=== PATIENT | male | born 1980 | race African-American/Black ===

== ENCOUNTER 2020-11-07 16:00 | Emergency (ER) | payer OTHER, SELFPAY ==
[2020-11-07] VITALS (23 sets, daily range): BP systolic 122–159; BP diastolic 87–112; PULSE 98–117; RESP 16–22; TEMP 36.1; O2SAT 97–98
--- NOTE | ~2020-11-07 | XR_ITS ---
EXAMINATION: XR chest 2V 11/07/2020 16:22 INDICATION: Midsternal chest pain and dizziness. Hypertension. PROCEDURE: 2 view chest COMPARISON: Comparison to multiple prior studies sequentially, with oldest reviewed study dated 10/2008. FINDINGS: The lungs are clear. The cardiomediastinal silhouette is within normal limits. There are no pleural effusions. There is no pneumothorax suspected. IMPRESSION: 1: NO ACUTE CARDIOPULMONARY DISEASE. Reviewed, dictated and finalized at location A. 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
--- NOTE | 2020-11-07 16:01 | ECG_ITS ---
Measurements Intervals [place] Rate: 115 P: 44 [place]: 131 QRS: -28 QRSD: 85 T: -4 QT: 315 QTc: 436 Interpretive Statements SINUS TACHYCARDIA DELAYED PRECORDIAL R/S TRANSITION BORDERLINE T WAVE ABNORMALITY- INFERIOR LEADS BASELINE WANDER- V1, V3-V6 ABNORMAL ECG Electronically Signed On 11-07-2020 16:33:41 [employer] by Paulo Gomez D.O.
[2020-11-07 16:18] LABS: Basophils Percent Auto 0.3 % (0.2-1.2); Eosinophils Absolute Auto 0.1 K/mm3 (0-0.3); Eosinophils Percent Auto 1.4 % (0-4.4); Hematocrit 46.7 % (42.0-52.0); Hemoglobin 15.8 g/dL (14.0-18.0); Immature Granulocyte Absolute 0.01 K/mm3 (0.00-0.031); Immature Granulocyte Percent A 0.1 % (0-0.5); Lymphocytes Percent Auto 38.4 % (18.3-44.2); Mean Corpuscular HGB Conc 33.8 g/dl (32-36); Mean Corpuscular Hemoglobin 29.4 pg (26-34); Mean Platelet Volume 9.7 fl (7.4-10.4); Monocytes Absolute Auto 0.7 K/mm3 (0.1-0.6); Monocytes Percent Auto 6.6 % (2.6-8.5); Neutrophils Absolute Auto 5.4 K/mm3 (1.3-6.7); Neutrophils Percent Auto 53.2 % (45.5-73.1); Platelet Count Result 311 k/mm3 (150-375); Red Blood Count 5.37 M/mm3 (4.6-6.20); Red Cell Distribution Width 13.2 % (11.5-14.5); White Blood Count 10.2 K/mm3 (4.5-10.0)
[2020-11-07 16:29] LABS: Anion Gap 9 mmol/L (8-16); Blood Urea Nitrogen 18 mg/dL (9-20); Calcium 9.2 mg/dL (8.4-10.2); Carbon Dioxide 25 mmol/L (22-30); Chloride 104 mmol/L (98-107); Estimated CRCL calculation 185 ml/min; Estimated Glomerular Filt Rate > 60; Glucose 139 mg/dL (75-110); INR 0.9; Prothrombin Time 12.7 Seconds (11.1-14.7); Sodium 138 mmol/L (137-145)
[2020-11-07 16:30] LABS: Partial Thromboplastin Time 28.1 SECONDS (22.3-36.8)
[2020-11-07 16:40] LABS: Troponin I < 0.012 ng/mL (0.000-0.034)
--- NOTE | 2020-11-07 16:43 | ED.CHESTPAIN ---
HPI - Chest Pain General Chief Complaint: Chest Pain Stated Complaint: chest pain Time Seen by Provider: 11/07/20 16:19 Source: patient Mode of arrival: ambulatory Limitations: no limitations History of Present Illness HPI narrative: Patient is a 39-year-old male complaining of chest pain, midsternal, sharp, nonradiating, 5 out of 10, currently the pain is 1 out of 10, Worse with deep breaths and movement started approximately 3 to 4 days ago. Patient denies any shortness of breath, dull pain, nausea, vomiting, diaphoresis, fever or chills. Related Data Home Medications Medication Instructions Recorded Confirmed lisinopril-hydrochlorothiazide BYMOUTH DAILY 11/07/20 Allergies Allergy/AdvReac Type Severity Reaction Status Date / Time No Known Allergies Allergy Unverified 11/07/20 16:10 Review of Systems Review of Systems: All systems reviewed & are unremarkable except as noted in HPI and below Constitutional: Constitutional: Denies body ache(s), Denies chills, Denies excessive sweating, Denies fatigue, Denies fever(s), Denies headache(s), Denies lethargy, Denies malaise, Denies weakness and Denies weight loss Eyes: Eyes: Denies blurry vision, Denies change in vision and Denies loss of vision ENT: Denies dizziness, Denies ear discharge, Denies headache(s), Denies lip swelling, Denies epistaxis, Denies nasal congestion, Denies neck pain, Denies throat swelling and Denies tongue swelling Cardiovascular: Cardiovascular: Denies diaphoresis, Denies rapid heart rate, Denies edema, Denies irregular heart rhythm, Denies lightheadedness, Denies palpitations, Denies dyspnea and Denies dyspnea on exertion Respiratory: Respiratory: Denies chest congestion, Denies cough, Denies hemoptysis, Denies dyspnea and Denies dyspnea on exertion Gastrointestinal: Gastrointestinal: Denies abdominal pain, Denies melena, Denies hematochezia, Denies diarrhea, Denies nausea, Denies vomiting and Denies hematemesis Musculoskeletal: Musculoskeletal: Denies abnormal gait, Denies deformity, Denies joint swelling, Denies limited range of motion, Denies neck pain and Denies numbness Neurologic: Denies Abnormal speech present, Denies abnormal gait, Denies confusion, Denies dizziness, Denies headache(s), Denies focal weakness, Denies loss of vision, Denies numbness, Denies Other visual disturbances, Denies Sensory deficit (Neuro) and Denies weakness Psychiatric: Psychiatric: Denies confusion, Denies depression, Denies auditory hallucinations, Denies homicidal ideation and Denies suicidal ideation Endocrine: Endocrine: Denies cold intolerance, Denies excessive sweating, Denies fatigue, Denies heat intolerance and Denies palpitations Hematologic/Lymphatic: Hematologic/Lymphatic: Denies easy bleeding and Denies easy bruising Allergic/Immunologic: Allergic/Immunologic: Denies lip swelling, Denies throat swelling and Denies tongue swelling Exam Const: General: cooperative, healthy appearing, comfortable, no acute distress, well developed, alert and awake; No confusion Orientation/consciousness: oriented to person, oriented to place, oriented to time, patient oriented x3 and No confusion Limitations: no limitations HENMT: Head: normal to inspection, normocephalic and atraumatic Ears: hearing grossly normal bilaterally, TM normal on the right and TM normal on the left General nose exam: Normal external nose present, Normal nares present and No nasal discharge present Face and sinus: normal facial exam Mouth: Yes Normal oral and palatal mucosa present, Yes lip normal, Yes tongue normal and Yes oropharynx normal Throat: posterior oropharynx normal, tonsils normal and uvula midline Eyes: General: appearance normal, both eyes and all related structures Pupils: Equal, round and reactive pupils present EOM: EOMs intact bilaterally Neck: Neck: normal visual inspection, full ROM, no lymphadenopathy and no meningeal signs Chest: Chest palpation & inspection: normal ins
[2020-11-07 17:10] LABS: D Dimer 0.25 ug/mL (<0.48)
[2020-11-07 20:02] LABS: Troponin I < 0.012 ng/mL (0.000-0.034)
== END 2020-11-07 20:50 | disposition home or self-care (01) ==
PROVIDERS: Emergency Provider Emergency Medicine; PCP Internal Medicine Infectious Disease
DX: R07.89 Other chest pain (principal); R00.0 Tachycardia, unspecified; R94.31 Abnormal electrocardiogram [ECG] [EKG]
CPT/HCPCS: 36415; 71046; 80048; 84484; 85025; 85380; 85610; 85730; 93005; 99284

== ENCOUNTER 2021-04-04 00:05 | Emergency (ER) | payer OTHER, SELFPAY ==
--- NOTE | ~2021-04-04 | XR_ITS ---
EXAMINATION: XR chest 1V portable INDICATION: Cough, COVID 19 positive TECHNIQUE: Portable AP chest at 1259 hours COMPARISON: 11/07/2020 FINDINGS: There are patchy opacities throughout all lung zones. There is no pleural effusion or pneum othorax. The cardiomediastinal silhouette is normal. The visualized osseous structures are unremarkab le. IMPRESSION: 1. Diffuse lung disease, consistent with pneumonia and/or pulmonary edema. Reviewed, dictated and finalized at location A.
[2021-04-04 00:03] VITALS: BP 157/94; PULSE 113; RESP 20; TEMP 36.2; O2SAT 94
--- NOTE | 2021-04-04 00:28 | ECG_ITS ---
Measurements Intervals [place] Rate: 109 P: 53 [place]: 131 QRS: -28 QRSD: 102 T: -5 QT: 335 QTc: 452 Interpretive Statements SINUS TACHYCARDIA POOR R WAVE PROGRESSION, ANTERIOR LEADS BORDERLINE T WAVE ABNORMALITY- ANTEROLAT/INF LEADS BASELINE ARTIFACT- I, II, III ABNORMAL ECG Electronically Signed On 04-04-2021 7:38:31 CDT by Paulo Gomez D.O.
[2021-04-04 01:18] VITALS: BP 139/80; PULSE 99; RESP 24; O2SAT 95
[2021-04-04] MEDS: SODIUM CHLORIDE 0.9% IV 1,000 ML 999 ML IV CONT (01:18)
[2021-04-04] MEDS: KETOROLAC 30 MG/ML VIAL (*BKC) IV PUSH (01:18)
[2021-04-04 01:25] LABS: Basophils Percent Auto 0.2 % (0.2-1.2); Hematocrit 43.8 % (42.0-52.0); Hemoglobin 14.4 g/dL (14.0-18.0); Immature Granulocyte Absolute 0.01 K/mm3 (0.00-0.031); Immature Granulocyte Percent A 0.2 % (0-0.5); Lymphocytes Absolute Auto 1.62 K/mm3 (0.9-3.2); Mean Corpuscular HGB Conc 32.9 g/dl (32-36); Mean Corpuscular Hemoglobin 28.5 pg (26-34); Mean Corpuscular Volume 86.7 fl (80-100); Mean Platelet Volume 10.4 fl (7.4-10.4); Monocytes Absolute Auto 0.3 K/mm3 (0.1-0.6); Monocytes Percent Auto 5.6 % (2.6-8.5); Neutrophils Absolute Auto 2.7 K/mm3 (1.3-6.7); Platelet Count Result 195 k/mm3 (150-375); Red Blood Count 5.05 M/mm3 (4.6-6.20); Red Cell Distribution Width 13.3 % (11.5-14.5); White Blood Count 4.6 K/mm3 (4.5-10.0)
[2021-04-04 01:36] LABS: Alanine Aminotransferase 67 U/L (4-50); Albumin Level 4.3 g/dL (3.5-5.1); Alkaline Phosphatase 75 U/L (38-126); Anion Gap 11 mmol/L (8-16); Aspartate Amino Transferase 51 U/L (17-59); Bilirubin,Total 0.6 mg/dL (0.2-1.3); Blood Urea Nitrogen 9 mg/dL (9-20); Calcium 8.4 mg/dL (8.4-10.2); Carbon Dioxide 25 mmol/L (22-30); Chloride 102 mmol/L (98-107); Estimated CRCL calculation 179 ml/min; Estimated Glomerular Filt Rate > 60; Glucose 132 mg/dL (75-110); Potassium 3.4 mmol/L (3.4-5.0); Sodium 138 mmol/L (137-145)
--- NOTE | 2021-04-04 02:37 | ED.FEVER ---
HPI - Fever General Chief Complaint: Fever Stated Complaint: covid +/ not feeling well Time Seen by Provider: 04/04/21 00:07 History of Present Illness HPI Narrative: Patient is a 40-year-old male who presents ER with persistent cough and body aches related to COVID-19. Diagnosed 6 days ago. Has been feeling ill for longer than that. Has had loss of taste and smell. Symptoms initially began with sinus congestion and cough. Patient reports cough is frequent is causing achiness to the back and chest. He has no shortness of breath with exertion. He has not been on any medications. He has not been vaccinated for Covid. Related Data Home Medications Medication Instructions Recorded Confirmed lisinopril-hydrochlorothiazide BYMOUTH DAILY 11/07/20 Allergies Allergy/AdvReac Type Severity Reaction Status Date / Time No Known Allergies Allergy Unverified 11/07/20 16:10 Review of Systems Review of Systems: All systems reviewed & are unremarkable except as noted in HPI and below Constitutional: Constitutional: Reports chills, Reports fatigue and Reports fever(s) ENT: Reports nasal congestion and Denies sore throat Respiratory: Respiratory: Reports cough, Denies dyspnea and Denies wheezing Gastrointestinal: Gastrointestinal: Denies abdominal pain, Denies nausea and Denies vomiting PMFSH Past Medical History Medical History (Updated 04/04/21 @ 02:41 by James Gonzalez MD) Hypertension Surgical History Surgical History (Updated 04/04/21 @ 02:38 by James Gonzalez MD) No pertinent past surgical history Social History Social History (Updated 04/04/21 @ 02:38 by James Gonzalez MD) Smoking status: Never smoker Exam Narrative: Exam Narrative: GENERAL: Well-appearing, morbidly obese, and in no acute distress. HEAD: Normocephalic, atraumatic. CHEST: Clear to auscultation. No respiratory distress. HEART: Regular rate and rhythm. Normal peripheral pulses. ABDOMEN: Soft, nontender, nondistended. EXTREMITIES: Normal range of motion. No edema. SKIN: Warm, dry, no rash. NEURO: Alert and oriented x3. PSYCH: Normal mood and affect. 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 Discharge home. No hypoxia. Hopefully patient is beginning to turn the corner in his symptoms. Vital Signs Vital signs: Vital Signs Temperature 97.1 F L 04/04/21 00:03 Pulse Rate 113 H 04/04/21 00:03 Respiratory Rate 20 04/04/21 00:03 Blood Pressure 157/94 H 04/04/21 00:03 Pulse Oximetry 94 04/04/21 00:03 Temperature 97.1 F L 04/04/21 00:03 Pulse Rate 99 04/04/21 01:18 Respiratory Rate 24 H 04/04/21 01:18 Blood Pressure 139/80 04/04/21 01:18 Pulse Oximetry 95 04/04/21 01:18 MDM - Fever Lab Data Result diagrams: 04/04/21 01:17 04/04/21 01:17 Labs: Lab Results 04/04/21 04/04/21 Range/Units 01:17 01:17 WBC 4.6 (4.5-10.0) K/mm3 RBC 5.05 (4.6-6.20) M/mm3 Hgb 14.4 (14.0-18.0) g/dL Hct 43.8 (42.0-52.0) % MCV 86.7 (80-100) fl MCH 28.5 (26-34) pg MCHC 32.9 (32-36) g/dl RDW 13.3 (11.5-14.5) % Plt Count 195 (150-375) k/mm3 MPV 10.4 (7.4-10.4) fl Immature Gran % (Auto) 0.2 (0-0.5) % Neut % (Auto) 59.0 (45.5-73.1) % Lymph % (Auto) 35.0 (18.3-44.2) % Grainger % (Auto) 5.6 (2.6-8.5) % Eos % (Auto) 0.0 (0-4.4) % Baso % (Auto) 0.2 (0.2-1.2) % Lymph # (Auto) 1.62 (0.9-3.2) K/mm3 Grainger # (Auto) 0.3 (0.1-0.6) K/mm3 Eos # (Auto) 0.0 (0-0.3) K/mm3 Baso # (Auto) 0.0 (0.0-0.1) K/mm3 Abs Immat Gran (auto) 0.01 (0.00-0.031) K/mm3 Absolute Neuts (auto) 2.7 (1.3-6.7) K/mm3 Absolute Nucleated RBC 0.0 (0.0-0.012) K/mm3 Nucleated RBC % 0.0 (0.0-0.2) % Sodium 138 (137-145) mmol/L Potassium 3.4 (3.4-5.0) mmol/L Chloride 102 (98-107) mmol/L Carbon Dioxide 25 (22-30) mmol/L Anion Gap 11 (8-16) mmol/L BUN 9 D (9-20) mg/dL Creatinine 0.80 (
[2021-04-04 02:46] VITALS: BP 115/70; PULSE 90; RESP 20; O2SAT 94
--- NOTE | 2021-04-08 04:50 | PC.NURSE ---
LATE ENTRY This note is being entered to document information to the patient's record. The following information was omitted on [], by [[email or web address] @ [phone]].
== END 2021-04-04 03:06 | disposition home or self-care (01) ==
PROVIDERS: Emergency Provider Emergency Medicine; PCP Internal Medicine Infectious Disease
DX: U07.1 COVID-19 (principal); J12.82 Pneumonia due to coronavirus disease 2019; I10 Essential (primary) hypertension
CPT/HCPCS: 36415; 71045; 80053; 85025; 93005; 96361; 96374; 99284; J1885; J7030

== ENCOUNTER 2021-05-28 00:31 | Emergency (ER) | payer OTHER, SELFPAY ==
[2021-05-28 00:36] VITALS: BP 173/105; PULSE 98; RESP 16; TEMP 36.8; O2SAT 98
--- NOTE | 2021-05-28 01:05 | ECG_ITS ---
Measurements Intervals [place] Rate: 86 P: 41 [place]: 148 QRS: -24 QRSD: 102 T: -4 QT: 371 QTc: 445 Interpretive Statements SINUS RHYTHM DELAYED PRECORDIAL R/S TRANSITION BORDERLINE T WAVE ABNORMALITY- ANT/INF LEADS BASELINE ARTIFACT- I, II, III, AVR, AVL, AVF, V2-V6 BORDERLINE ECG Electronically Signed On 05-28-2021 6:27:26 CDT by Paulo Gomez D.O.
--- NOTE | 2021-05-28 01:07 | ED.DIZZY ---
HPI - Dizziness General Chief Complaint: Dizziness Stated Complaint: headaches, blurred vision, not sleeping Time Seen by Provider: 05/28/21 00:58 History of Present Illness HPI Narrative: Patient presents with not feeling well. Patient ports she had Covid back in March and ever since then he has not felt back to 100%. Reports is getting progressively worse prickly over the last week and over the last 24 hours. Reports diffuse body aches subjective fevers and chills nausea and decreased appetite. Reports dark-yellow urine reports cough as well as headaches. Denies any focal areas of pain is reports diffuse body aches. Related Data Home Medications Medication Instructions Recorded Confirmed lisinopril-hydrochlorothiazide BYMOUTH DAILY 11/07/20 Allergies Allergy/AdvReac Type Severity Reaction Status Date / Time No Known Allergies Allergy Unverified 11/07/20 16:10 Review of Systems Review of Systems: CONSTITUTIONAL: Reports fevers and chills EYES: Denies visual changes, redness, or discharge. ENT: Denies rhinorrhea, congestion, sore throat, or otalgia. CARDIOVASCULAR: Denies chest pain, palpitations, or edema. RESPIRATORY: Denies dyspnea. GASTROINTESTINAL: Denies focal abdominal pain, vomiting, or diarrhea. GENITOURINARY: Denies dysuria or hematuria. SKIN: Denies rash or itching. MUSCULOSKELETAL: Denies back pain, joint pain.. NEUROLOGIC: Denies numbness, dizziness, or weakness. PSYCHIATRIC: Denies anxiety or depression. All systems reviewed & are unremarkable except as noted in HPI and below PMFSH Past Medical History Medical History Hypertension Surgical History Surgical History No pertinent past surgical history Social History Social History Smoking status: Never smoker Exam Narrative: GENERAL: Well-appearing, well-nourished, and in no acute distress. HEAD: Normocephalic, atraumatic. EYES: PERRLA and EOMI. ENT: Nares clear, no rhinorrhea or epistaxis. Mucous membranes moist. NECK: Supple. No masses. No JVD CHEST: Clear to auscultation. No respiratory distress. No wheezes rales or rhonchi HEART: Regular rate and rhythm. No murmur heard. Normal peripheral pulses. ABDOMEN: Soft, nontender, nondistended, normal active bowel sounds. EXTREMITIES: Normal range of motion. No edema. SKIN: Warm, dry, no rash. NEURO: No focal deficits. Alert and oriented x3. PSYCH: Normal mood and affect. Course Reevaluation(s) Reevaluation #1: Patient reports symptoms feel improved results and plan reviewed with patient. Patient comfortable with the outpatient plan. Date: 05/28/21 Time: : Vital Signs Vital signs: Vital Signs Temperature 36.8 C 05/28/21 00:36 Pulse Rate 98 05/28/21 00:36 Respiratory Rate 16 05/28/21 00:36 Blood Pressure 173/105 H 05/28/21 00:36 Pulse Oximetry 98 05/28/21 00:36 Temperature 36.6 C 05/28/21 01:16 Pulse Rate 86 05/28/21 02:37 Respiratory Rate 16 05/28/21 02:37 Blood Pressure 166/98 H 05/28/21 02:37 Pulse Oximetry 96 05/28/21 02:37 MDM - Dizziness MDM Narrative Medical decision making narrative: H&P as above, vs with hypertension, pt looks clinically well, exam reassuring, labs reassuring, additional labs/img considered, symptomatic relief available as needed, on reevaluation pt continues to looks clinically well. Suspect viral process, dns severe sepsis, severe dehydration, meningitis. Given improvement and negative work-up plan to tx/monitor as op w/ pcm f/u findings/plan discussed with pt, pt agree/comfortable with plan, return precautions given Lab Data Result diagrams: 05/28/21 01:34 05/28/21 01:34 Labs: Lab Results 05/28/21 05/28/21 05/28/21 Range/Units 01:34 01:34 01:34 WBC 9.8 (4.5-10.0) K/mm3 RBC 4.87 (4.6-6.20) M/mm3 Hgb
[2021-05-28 01:16] VITALS: BP 152/93; PULSE 89; RESP 20; TEMP 36.6; O2SAT 97
[2021-05-28 01:21] VITALS: BP 152/93; PULSE 90; RESP 16; O2SAT 96
--- NOTE | 2021-05-28 01:24 | PC.NURSE ---
Pt unable to void at this time, refuses straight catheterization at this time. Urinal at bedside.
[2021-05-28 01:31] VITALS: BP 133/90; PULSE 86; RESP 23; O2SAT 97
[2021-05-28] MEDS: SODIUM CHLORIDE 0.9% IV 1,000 ML 999 ML IV CONT (01:38)
[2021-05-28] MEDS: ONDANSETRON INJ 4 MG/2 ML VIAL IV PUSH (01:40)
[2021-05-28] MEDS: KETOROLAC 30 MG/ML VIAL (*BKC) 15 MG IV PUSH (01:40)
[2021-05-28 01:53] LABS: Basophils Percent Auto 0.4 % (0.2-1.2); Eosinophils Absolute Auto 0.1 K/mm3 (0-0.3); Eosinophils Percent Auto 1.1 % (0-4.4); Hematocrit 42.7 % (42.0-52.0); Hemoglobin 14.2 g/dL (14.0-18.0); Immature Granulocyte Absolute 0.02 K/mm3 (0.00-0.031); Immature Granulocyte Percent A 0.2 % (0-0.5); Lymphocytes Absolute Auto 4.15 K/mm3 (0.9-3.2); Lymphocytes Percent Auto 42.4 % (18.3-44.2); Mean Corpuscular HGB Conc 33.3 g/dl (32-36); Mean Corpuscular Hemoglobin 29.2 pg (26-34); Mean Corpuscular Volume 87.7 fl (80-100); Mean Platelet Volume 9.5 fl (7.4-10.4); Monocytes Absolute Auto 0.8 K/mm3 (0.1-0.6); Monocytes Percent Auto 8.6 % (2.6-8.5); Neutrophils Absolute Auto 4.6 K/mm3 (1.3-6.7); Neutrophils Percent Auto 47.3 % (45.5-73.1); Platelet Count Result 312 k/mm3 (150-375); Red Blood Count 4.87 M/mm3 (4.6-6.20); Red Cell Distribution Width 13.2 % (11.5-14.5); White Blood Count 9.8 K/mm3 (4.5-10.0)
[2021-05-28 02:00] LABS: Add Urine Microscopic? YES; Appearance Urine Clear (Clear); Bilirubin Urine Negative (Negative); Blood Urine Negative (Negative); Color Urine Yellow (Yellow); Glucose Urine UA Negative (Negative); Ketones Urine Negative (Negative); Leukocyte Esterase Ur Negative LEU/UL (Negative); Mucus Urine Heavy /lpf; Nitrate Urine Negative (Negative); Protein Urine Negative (Negative); RBC Urine 0-2 /hpf (0-2); WBC Urine 0-3 /hpf
[2021-05-28 02:00] LABS: Lactic Acid Reflex 1.1 mmol/L (0.7-2.1)
[2021-05-28 02:01] VITALS: BP 158/99; PULSE 87; RESP 16; O2SAT 96
[2021-05-28 02:01] LABS: Alanine Aminotransferase 46 U/L (4-50); Albumin Level 4.4 g/dL (3.5-5.1); Alkaline Phosphatase 72 U/L (38-126); Anion Gap 9 mmol/L (8-16); Aspartate Amino Transferase 31 U/L (17-59); Bilirubin,Total 0.8 mg/dL (0.2-1.3); Blood Urea Nitrogen 10 mg/dL (9-20); Calcium 8.8 mg/dL (8.4-10.2); Carbon Dioxide 26 mmol/L (22-30); Chloride 102 mmol/L (98-107); Estimated CRCL calculation 204 ml/min; Estimated Glomerular Filt Rate > 60; Glucose 136 mg/dL (65-110); Lipase 59 U/L (23-300); Potassium 3.4 mmol/L (3.4-5.0); Sodium 137 mmol/L (137-145)
[2021-05-28 02:37] VITALS: BP 166/98; PULSE 86; RESP 16; O2SAT 96
== END 2021-05-28 02:40 | disposition home or self-care (01) ==
PROVIDERS: Emergency Provider Emergency Medicine; PCP Family Medicine Sports Medicine
DX: B34.9 Viral infection, unspecified (principal); R42 Dizziness and giddiness; Z86.16 Personal history of COVID-19; I10 Essential (primary) hypertension; R94.31 Abnormal electrocardiogram [ECG] [EKG]
CPT/HCPCS: 36415; 80053; 81001; 83605; 83690; 85025; 93005; 96361; 96374; 96375; 99284; J1885; J2405; J7030

== ENCOUNTER 2023-05-09 23:53 | Emergency (ER) | payer OTHER, SELFPAY ==
[2023-05-09 23:54] VITALS: BP 168/105; PULSE 87; RESP 16; TEMP 36.4; O2SAT 97
[2023-05-10 00:31] VITALS: BP 146/73; PULSE 86; RESP 21; TEMP 36.4; O2SAT 98
[2023-05-10 00:32] VITALS: O2SAT 99
[2023-05-10] MEDS: MECLIZINE HCL 25 MG TABLET PO (01:10)
[2023-05-10 01:11] LABS: Strep Group A RT-PCR NOT DETECTED (Negative)
[2023-05-10 01:21] LABS: Influenza A QL RT-PCR Negative (Negative); Influenza B QL RT-PCR Negative (Negative); RSV RNA, RT-PCR Negative (Negative); SARS-CoV-2 RNA PCR Negative (Negative)
--- NOTE | 2023-05-10 01:47 | ED.URI ---
HPI - URI/Sore Throat General Chief Complaint: Upper Respiratory Infection Stated Complaint: dizzy spells Time Seen by Provider: 05/10/23 00:34 History of Present Illness HPI Narrative: Patient states that over the last week, he has been having increased sinus pressure, and feeling like his ears are very full, with a sore throat. He states that associated with this he has been having more motion sickness, especially when he is driving, which resolves when he is not in a moving vehicle. No focal numbness or weakness anywhere or difficulty with speech. No personal or family history of stroke. Related Data Home Medications Medication Instructions Recorded Confirmed lisinopril-hydrochlorothiazide BYMOUTH DAILY 11/07/20 Allergies Allergy/AdvReac Type Severity Reaction Status Date / Time No Known Allergies Allergy Unverified 11/07/20 16:10 Review of Systems Review of Systems: CONST: No fever. HEENT: Sore throat, ear fullness C/V: No chest pain RESP: No cough GI: No abdominal : No dysuria. M/S: No joint pain. SKIN: No rash. NEURO: Vertigo PSYCH: [No depression] [facility] Past Medical History Medical History Hypertension Surgical History Surgical History No pertinent past surgical history Social History Social History Smoking status: Never smoker Exam Narrative: EXAMINATION OF ORGAN SYSTEMS/BODY AREAS: Constitutional: Vital signs per nursing GENERAL:[No acute distress, non-toxic appearing.] HEAD: Normal with no signs of head trauma. EYES: EOMI, conjunctiva normal ENT: Bilateral TMs intact, normal voice, no tonsillar exudates or swelling LUNGS: Nonlabored breathing. HEART: [Regular rate and rhythm] ABD: [Soft], [nontender to palpation] EXT: Normal range of motion SKIN: [No rashes or lesions.] NEURO: [Alert and oriented x 3. CN 2-12 intact; normal gait, no motor or sensory deficits] PSYCH: Normal affect Course Vital Signs Vital signs: Vital Signs Temperature 97.6 F 05/09/23 23:54 Pulse Rate 87 05/09/23 23:54 Respiratory Rate 16 08/08/23 23:54 Blood Pressure 168/105 H 05/09/23 23:54 Pulse Oximetry 97 05/09/23 23:54 Oxygen Delivery Room Air 05/09/23 23:54 Temperature 97.5 F L 05/10/23 01:58 Pulse Rate 87 05/10/23 01:58 Respiratory Rate 25 H 05/10/23 01:58 Blood Pressure 101/74 05/10/23 01:58 Pulse Oximetry 98 05/10/23 01:58 Oxygen Delivery Room Air 05/10/23 00:32 MDM - URI/Sore Throat MDM Narrative Medical decision making narrative: 42-year-old male presenting with intermittent vertigo worse when he is in a moving vehicle as well as increased ear pressure over the last week, none currently, vital stable, well-appearing here, TMs intact and no airway compromise, normal neurologic exam including normal gait. Very low concern for acute CVA given the intermittency of his symptoms and no risk factors, especially with it being worse when he is driving, swabs obtained for strep and COVID which were negative. Patient continues to be well-appearing, I will start him on meclizine for his vertigo and have him follow-up with ENT and with neurology. He is also started on Flonase for sinusitis. Stable for discharge at this time. Lab Data Labs: Lab Results 05/10/23 Range/Units 00:41 Influenza A (RT-PCR) Negative (Negative) Influenza B (RT-PCR) Negative (Negative) RSV (RT-PCR) Negative (Negative) SARS-CoV-2 RNA (RT-PCR) Negative (Negative) Group A Strep (PCR) Not detected (Negative) Discharge Plan Discharge Clinical Impression: Vertigo, Sinusitis Patient Disposition: Home, Self-Care Condition: Stable Instructions: Antibiotic Form, Sinusitis (ED), Vertigo (ED) Additional Instructions: Please follow-up with the ENT and neurologist, barotlo
[2023-05-10 01:58] VITALS: BP 101/74; PULSE 87; RESP 25; TEMP 36.4; O2SAT 98
== END 2023-05-10 01:59 | disposition home or self-care (01) ==
PROVIDERS: Emergency Provider Emergency Medicine; PCP Family Medicine Sports Medicine
DX: J32.9 Chronic sinusitis, unspecified (principal); R42 Dizziness and giddiness; Z20.822 Contact with and (suspected) exposure to COVID-19; I10 Essential (primary) hypertension
CPT/HCPCS: 87637; 87651; 99283; A9270

== ENCOUNTER 2024-10-22 22:46 | Emergency (ER) | payer BC, SELFPAY ==
[2024-10-22 22:50] VITALS: BP 143/85; PULSE 98; RESP 18; TEMP 36.4; O2SAT 100
--- NOTE | 2024-10-22 23:21 | ED.EAR ---
HPI - Ear Problem General Chief complaint: Ear Stated complaint: ear pain Time Seen by Provider: 10/22/24 23:07 History of Present Illness HPI Narrative: Patient is a 43-year-old male who presents the emergency department this evening complaining of left ear pain. Patient states the pain has been ongoing for the past 10 days ago. Denies any ear drainage. Denies any recent swimming or any recent URI illness. Patient also denies any recent fevers or chills. No additional symptoms or concerns at this time. Related Data Home Medications ?Medication ?Instructions ?Recorded ?Confirmed ?Last Taken ?Type lisinopril-hydrochlorothiazide BYMOUTH DAILY 11/07/20 Unknown History Allergies Allergy/AdvReac Type Severity Reaction Status Date / Time No Known Allergies Allergy Unverified 11/07/20 16:10 Review of Systems Review of Systems: All systems are reviewed and are negative unless stated otherwise in the HPI. COUNT INCLUDES THE [facility] Past Medical History Medical History Hypertension Surgical History Surgical History No pertinent past surgical history Social History Social History Smoking status: Never smoker Exam Narrative: General: Alert, awake, afebrile, in no acute distress. HEENT: PERRL, no rhinorrhea, no post nasal drip, oropharynx clear, mild erythema to the left tympanic membrane with diminished light reflex. Neck: Trachea midline, no JVD, no lymphadenopathy. Cardiovascular: Regular rate and rhythm, no murmurs, rubs or gallops, no peripheral edema. Respiratory: Clear to auscultation bilaterally, no tachypnea, no wheezing, no rhonchi, no rubs, no respiratory distress. Abdomen: Soft, nontender, nondistended, no rebound, no guarding, no peritoneal signs. Musculoskeletal: No joint swelling or deformity, normal muscle tone. Skin: No rashes or petechia, no signs of infection. Psychiatric: Alert and oriented, normal behavior and judgment for situation. Neurological: Alert and oriented to person, place, and time. Follows all commands. No focal deficits, speech is clear and fluent. Course Vital Signs Vital signs: Vital Signs Temperature 97.6 F 10/22/24 22:50 Pulse Rate 98 10/22/24 22:50 Respiratory Rate 18 10/22/24 22:50 Blood Pressure 143/85 H 10/22/24 22:50 Pulse Oximetry 100 10/22/24 22:50 Oxygen Delivery Room Air 10/22/24 22:50 Temperature 97.6 F 10/22/24 22:50 Pulse Rate 98 10/22/24 22:50 Respiratory Rate 18 10/22/24 22:50 Blood Pressure 143/85 H 10/22/24 22:50 Pulse Oximetry 100 10/22/24 22:50 Oxygen Delivery Room Air 10/22/24 22:50 Medical Decision Making MDM Narrative Medical decision making narrative: The patient was evaluated by myself in the emergency department. History is obtained from patient who is an independent historian and physical exam was performed. External medical records were reviewed at this time. Patient was administered oral ibuprofen 400 mg and 1st dose of Augmentin in the emergency department. Differential diagnosis considerations include otitis media versus otitis externa, acute viral syndrome, pharyngitis/postnasal drip. Comorbidities impacting this visit include none. I have evaluated and discussed social determinants of health with the patient that could potentially impact subsequent diagnosis and treatment plans. On repeat assessment of the patient, reevaluation revealed that the patient is doing well and is in no acute distress. Patient symptoms have improved since he arrived to our emergency department. Repeat vital signs were all reviewed and noted to be stable. Differential diagnosis and treatment plan were discussed with the patient at bedside. Patient agrees with discussion and after shared medical decision making agrees with discharge. All questions were answered to the patient's satisfaction. Patient will follow up with his PCP in 1 week. A script for Augmentin was sent to patient's pharmacy to take as prescribed for his ear infection. Patient was provided with strict return precautions and instructed to return to the emergency department if any new or worsening symptoms develop. The patient was discharged in stable condition. Vital Signs Vital Signs: Vital Signs Temperature 97.6 F 10/22/24 22:50 Pulse Rate 98 10/22/24 22:50 Respiratory Rate 18 10/22/24 22:50 Blood Pressure 143/85 H 10/22/24 22:50 Pulse Oximetry 100 10/22/24 22:50 Oxygen Delivery Room Air 10/22/24 22:50 Temperature 97.6 F 10/22/24 22:50 Pulse Rate 98 10/22/24 22:50 Respiratory Rate 18 10/22/24 22:50 Blood Pressure 143/85 H 10/22/24 22:50 Pulse Oximetry 100 10/22/24 22:50 Oxygen Delivery Room Air 10/22/24 22:50 Discharge Plan Discharge Clinical Impression: Otitis media Patient Disposition: Home, Self-Care Condition: Improved Instructions: Antibiotic Form, Earache (ED) Additional Instructions: Please follow-up with your family doctor within the next 3-5 days. Return to the emergency department if any new or worsening symptoms develop. Take the prescribed antibiotic as instructed for your infection. You may use ibuprofen and Tylenol as needed for pain. Patient Language: [place] Prescriptions: New amoxicillin-pot clavulanate 875-125 mg tablet 1 tablet PO Q12H 7 Days Qty: 14 0RF No Action lisinopril-hydrochlorothiazide BYMOUTH DAILY fluticasone propionate [Allergy Relief (fluticasone)] 50 mcg/actuation spray,suspension 1 spray intranasal DAILY Qty: 16 0RF Rx Instructions: administer into each nostril meclizine 25 mg tablet 25 mg PO BID PRN (Reason: motion sickness) Qty: 20 0RF ondansetron 4 mg tablet,disintegrating 4 mg PO Q8H PRN (Reason: nausea and vomiting) Qty: 10 0RF Follow-up/Referrals: Young,Osei Saldaña MD [Primary Care Provider] - 1 Week Time of Disposition: 23:23
[2024-10-22] MEDS: AMOXICILLIN/CLAVULANATE K 875-125 MG TAB 1 TABLET PO (23:36)
[2024-10-22] MEDS: IBUPROFEN 400 MG TABLET PO (23:36)
--- OUTSIDE RECORDS SUMMARY | 2024-10-24 20:46 | XMS_ITS | Clinical Summary ---
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 Name Role Phone Unavailable Primary Care Provider Unavailabl e Social History Tobacco Use Types Packs/Day Years Used Date Smoking Tobacco: Never Assessed Sex and Gender Information Value Date Recorded Sex Assigned at Not on file Legal Sex Male 2:43 PM CDT Gender Identity Not on file Sexual Orientation Not on file Plan of Treatment Health Maintenance Due Date Last Done Comments Hepatitis C Virus (HCV) Screening 1981 Hepatitis B Immunization (1 of 3 - 19+ 3-dose series) 2000 Influenza Immunization (#1) 2024 SARS-COV-2 Immunization (2023- season) 2024 Respiratory Syncytial Virus (RSV) Immunization (Adult) (1 - 1-dose 75+ series) 2056 DTaP/Tdap/Td Immunization Discontinued 11/05/2018 TdaP Immunization Completed 11/05/2018 Meningococcal Immunization (ACWY) Aged Out No longer eligible based on patient's age to complete this topic Pneumococcal Immunization Combined Aged Out No longer eligible b ased on patient's age to complete this topic Rotavirus Immunization Aged Out No lo nger eligible based on patient's age to complete this topic
--- OUTSIDE RECORDS SUMMARY | 2024-10-24 20:46 | XMS_ITS | CONTINUITY OF CARE DOCUMENT ---
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 Julio C Ruvalcaba MD Chest pain active Toby Delgado MD Diabetes mellitus active Toby Delgado MD Obesity active Julio C Ruvalcaba MD Physical exam completed - Toby giles MD Dizziness active Julio C Ruvalcaba MD ENCOUNTERS Date Type Provider Location Encounter Diag nosis 2 - 2 In-person encounter Office Visit Toby Delgado MD [facility] Physical examChest painDiabetes mellitus 9 - 3 In-person encounter Office Visit Julio C Ruvalcaba MD [facility] DizzinessPalpitationsObesitySinus tachycardiaHypertension VITAL SIGNS Date Observation Value Provider Body Mass Index (Ratio) 50.58 kg/m2 Teresa Delgado MD blood pressure, cuff size large Emile Hankins blood pressure, diastolic 90 mm[Hg] Emile Hankins blood pressure, systolic 160 mm[Hg] Nehal Hankins oxygen saturation, oximetry 93 % Roz Hankins respiratory rate E&M 18 /min Roz hughesalex pulse rate 102 /min Roz Tobar david weight E&M 394 [lb_av] Roz Tobar davider height E&M 74 [in_i] Roz Tobar david blood pressure, diastolic 70 mm[Hg] Emile Hankins blood pressure, systolic 130 mm[Hg] Nehal Appiahalex Body Mass Index (Ratio) 46.99 kg/m2 Price Ruvalcaba MD blood pressure, cuff size large Fiona Gaston blood pressure, diastolic 90 mm[Hg] Fiona Gaston blood pressure, systolic 130 mm[Hg] Ac Gaston blood pressure, resting Yes Chika Gaston oxygen saturation, oximetry 94 % Nallely Gaston respiratory rate E&M 16 /min Nallely Gaston pulse rate 100 /min Nallely Gaston weight E&M 366 [lb_av] Nallely Gaston height E&M 74 [in_i] Nallely Gaston ALLERGIES No Known Drug Allergies HISTORY OF MEDICATION USE Medication Status Instructions Dates Provider Indications Com ments LISINOPRIL-HYDRO CHLOROTHIAZIDE 20-25 MG ORAL TABLET active once daily Nallely Gaston #30, 30 days supply, Filled 06/14/2017 SOCIAL HISTORY Date Observation Value Provider drug use no Toby Delgado MD alcohol use, average drinks per day social Toby Delgado MD alcohol use yes Toby Delgado MD social history E&M S moking History: Amber stallings is a former smoker. Toby Delgado MD social history reviewed E&M revi ewed - no changes required Toby Delgado MD number of years as a smoker 3 a Roz Hankins smoking history, tot al pack/day 1/2 Toby Delgado MD smoking, year quit 2018 Roz Tianbenson bourgeois cigarette use yes Roz Td johnson smoking status Former smoker Roz Tina marx smoking status Current every day smoker Sylvain palomares Cr social history E&M S moking History: Amber stallings is a former smoker. Julio C Ruvalcaba MD social history reviewed E&M revi ewed - no changes required Julio C Ruvalcaba MD alcohol use, average drinks per day social Nallely Gaston smoking, year quit 1 month ago Nallely vail cigarette use yes Nallely Gaston smoking status Former smoker Nallely Gaston FUNCTIONAL STATUS Date Observation Value Provider periodic limb movement index absent (0) Toby Delgado MD FAMILY HISTORY Family Member Condition Mother Family History of Di abetes: INSURANCE PROVIDERS Payer name Policy type / Coverage type [facility] republican ID [employer] Choice [employer] insurance [employer] [id number] ADVANCE DIRECTIVES Name Date DISCUSSED - NO DECISION MADE TREATMENT PLAN Date Name Performer Cardiology New Patient :Encourag ed weight loss. Toby Delgado MD Cardiology Ramin Rivera nt :A1c of 6.8%. Reports his mother has DM with severe vascular complications. Not started on any meds. Encouraged pt to continue with diet and lifestyle modifications and recheck HgA1c in 3 months. He will f/u with his PCP, Toby Delgado MD Cardiology New Patie nt :BP elevated today but he has not taken his Lisinopril-HCTZ yet. Strongly encouraged pt to take his medications consistently. Toby Delgado MD Cardiology New Patie nt :Had an episode of severe chest pain while working. A few milder episodes since then but no more severe pain. Had a normal routine stress test in 2017. Will repeat his echo and stress test. Toby Delgado MD Cardiology:Weight lo ss was encouraged including advise on eating habits. Julio C Ruvalcaba MD Cardiology: B P today: 130/90 His updated medication list for this problem includes: Lisinopril-hydrochlorothiazide 20-25 Mg Oral Tabs (Lisinopril-hydrochlorothiazide) ..... Once daily Julio C Ruvalcaba MD Cardiology:WIll have exercise stress test done. His updated medication list for this problem includes: Lisinopril-hydrochlorothiazide 20-25 Mg Oral Tabs (Lisinopril-hydrochlorothiazide) ..... Once daily Julio C Ruvalcaba MD Date Name Stress Routine Complete Echo Complete Echo STR - Routine HISTORY OF PROCEDURES Procedure Date Procedure Name Provider Procedure Notes S tatus EKG Toby Delgado MD completed Stress EKG Toby Delgado MD completed EKG Julio C duggan MD completed SNOMED-CT: [id number] Current Medications Documented Julio C Ruvalcaba MD completed
--- OUTSIDE RECORDS SUMMARY | 2024-10-24 20:46 | XMS_ITS | Data Portability ---
Author Organization [facility] Address [address] [place] [address] Care Team Providers Care Die Out Worker Name Role Phone ARIC GAITAN [employer] Dec[employer]ator [phone] Assessment No assessment recorded. Plan of Treatment Reminders Order Date Submit Date Provider Last Modified By Organization Details Last Modified Time Details Appointments None recorded . Lab HbA1c (hemoglo bin A1c), blood 2016 017 [facility], [facility], [address], [place], [address], 7 14:28:05 unlisted lab - TSH reflex to t4f 2016 017 [facility], [address], [address], [place], [address], 7 14:28:05 HIV 1+2 AB + HIV 1 p24 Ag, qualitat jyoti immunoas say, serum 2016 017 [facility], [address] [facility] [address], [place], [address], 7 14:28:05 hepatiti s C Ab, signal-t o-cutoff , serum or plasma 2016 017 [facility], [address] [facility] [address], [address], [place], [address], 7 14:28:06 CBC w/ auto diff 2016 017 [facility], [address], [address], [place], [address], 8 11:08:30 CMP, serum or plasma 2016 017 [facility], [address], [address], [place], [address], 8 11:08:31 lipid panel, serum 2016 017 julian [facility], [address], [address], [place], [address], 8 11:08:31 urinalys is, complete 2016 017 julian [facility], [address], [address], [place], [address], 8 11:08:31 lipid panel, serum 2018 019 orly [facility], [address], [address], [place], [address], 9 16:16:39 glucose, fasting, QN, serum or plasma 2018 019 [facility], [address], [address], [place], [address], 0 08:14:52 hepatic function panel, serum 2018 019 [facility], [address], [address], [place], [address], 0 08:14:52 HbA1c (hemoglo bin A1c), blood 2019 020 [facility], [address], [address], [place], [address], 0 10:13:10 glucose, fasting, QN, serum or plasma 2019 020 [facility], [address], [address], [place], [address], 0 07:10:46 CBC w/ auto diff 2019 020 [facility], [address] [facility], [address], [place], [address], 0 10:13:08 urinalys is, complete 2019 020 [facility], [address] [facility] [address], [address], [place], [address], 0 10:13:08 basic metaboli c 1998 panel, serum or plasma 2019 020 [facility], [address] [facility] [address], [address], [place], [address], 0 10:13:09 TSH, ultra-se nsitive, serum 2020 021 [facility], [address] [place], [place] [address], [address], [place], [address], 1 11:43:50 microalb umin, urine 2020 021 oajao [facility], [address] [facility] [address], [address], [place], [address], 1 11:19:39 lipid panel, serum 2020 021 [email or web address] [facility], [address] [place], [place] [address], [address], [place], [address], 1 12:07:17 HbA1c (hemoglo bin A1c), blood 2020 021 [facility], [address], [address], [place], [address], 1 11:47:13 Referral sleep medicine referral 2020 021 [email or web address] [facility], [address], [place] [address], [place], [address], 1 10:24:14 diabetic ophthalm ology referral 2020 021 [email or web address] [facility], [address] , [place], [address], 1 10:23:38 Procedures None recorded . Surgeries None recorded . Imaging US, liver 2018 019 [facility] ([facility]), [address], [place], [address], 0 11:14:02 US, liver - Charlotteia eugene becerra, Please. 2019 020 [facility] Not available 0 10:23:13 Medication Orders lisinopr il 20 mg-hydro chloroth iazide 25 mg tablet 2016 017 [id number], [address], [place], [place], [id number], 0 11:07:32 lisinopr il 20 mg-hydro chloroth iazide 25 mg tablet 2018 019 [facility] #[id number], [address], [place], [place], [id number], 0 11:07:32 lisinopr il 20 mg-hydro chloroth iazide 25 mg tablet 2019 020 [id number], [address], [place], [place], [id number], 0 11:34:42 lisinopr il 20 mg-hydro chloroth iazide 25 mg tablet 2020 021 INTERFACE [facility][id number], [address], [place], [place], [id number], 1 11:37:49 Patient TargetsNo targets recorded. Patient Instructions Encounter Date Encounter Id Patient Instructions Last Modified By Organization Details Last Modified Time 09/14/2017 [id number] When You Want to Lose Weight: Care Instructions smouserrn Not available 09/14/2017 14:29:16 high blood pressure: care instructions smouserrn Not available 09/14/2017 14:29:16 learning about high blood pressure smouserrn Not available 09/14/2017 14:29:16 Labs Follow up i n 6 months/PRN Continue meds Sleep study when he can afford it oajao Not available 09/14/2017 14:33:08 TTE, ST and cardiology evaluation were all discussed. oajao Not available 09/14/2017 14:33:32 11/05/2018 [id number] Quitting Tobacco : Care Instructions oajao Not available 11/05/2018 12:07:39 tetanus and diphtheria booster: care instructions oajao Not available 11/05/2018 12:07:39 prediabetes: car e instructions oajao Not available 11/05/2018 12:07:39 snoring: care instructions oajao Not available 11/05/2018 12:31:48 Restart Lisinopril/HCTZ, side effects were discussed Labs US oajao Not available 11/05/2018 12:32:33 Lab results were discussed in detail oajao Not available 11/05/2018 12:32:44 05/21/2020 [id number] Restart Lisinopril/HCTZ, side effects were discussed Labs in 6 weeks Follow up in 7 weeks US Weight loss Exercise He is aware that he is at risk of DM. oajao Not available 05/21/2020 13:04:22 07/02/2020 [id number] prediabetes: car e instructions oajao Not available 07/02/2020 10:17:33 [facility] as he is no longer insured. Labs are incomplete, he will be having the rest of the labs ordered drawn today. I apologized for the inconvenience. Weight loss Exercise Avoid sugar, soda and CHOS Follow up in 6 weeks oajao Not available 07/02/2020 10:34:29 His request for another two weeks off is based on his concern about his son and his mother's health issues. Ideally, their providers should be approached, if however he is unable to get a letter from them I will be pleased to write one. oajao Not available 07/02/2020 10:35:30 11/11/2020 [id number] body mass index: care instructions oajao Not available 11/11/2020 11:19:39 learning about healthy weight oajao Not available 11/11/2020 11:19:39 type 2 diabetes: care instructions oajao Not available 11/11/2020 11:19:38 high blood pressure: care instructions oajao Not available 11/11/2020 11:28:27 learning about high blood pressure oajao Not available 11/11/2020 11:28:27 Cardiology Light duty Sleep medicine ER with chest pain Diabetic diet Weight loss Follow up in 6 weeks oajao Not available 11/11/2020 16:48:44 Detailed visit oajao Not available 0 11/11/2020 16:45:55 Reason for Referral Diabetic Ophthalmology Refer ral for Type 2 diabetes mellitus without complication Referring Physician: Omi Ferguson, Internal Medicine, Encounter Date: 11/11/2020 Sleep Medicine Referral for Recurrent apnea HTN, BMI, prior history of apneic episodes Referring Physician: Omi Ferguson, Internal Medicine, Encounter Date: 11/11/2020 Results Created Date Observation Date Name Description Value Unit Range Abnormal Flag Note LastModifiedBy Organization Detail LastModifiedTime 11/02/19 19 11/03/2018 CBC w/ auto diff WBC 7.3 x10e3 /uL 3.4-10 .8 Not Available [facility] ([facility]) [address] [facility], [place], [address], 11/03/2018 09:15:50 11/02/1911/03/2018 CBC w/ auto diff RBC 5.34 x10e6 /uL 4.14-5 .80 Not Available [facility] ([facility]) [address] [facility], [place], [address], 11/03/2018 09:15:50 11/02/1911/03/2018 CBC w/ auto diff hemoglobin 15.5 g/dL 13.0-1 7.7 Not Available [facility] ([facility]) [address] [place], [address], 11/03/2018 09:15:50 11/02/1911/03/2018 CBC w/ auto diff hematocrit 46.2 % 37.5-5 1.0 Not Available [facility] ([facility]) [address] [place], [address], 11/03/2018 09:15:50 11/02/1911/03/2018 CBC w/ auto diff MCV 87 fL 79-97 Not Available [facility] ([facility]) [address] [place], [address], 11/03/2018 09:15:50 11/02/1911/03/2018 CBC w/ auto diff MCH 29.0 pg 26.6-3 3.0 Not Available [facility] ([facility]) [address] [place], [address], 11/03/2018 09:15:50 11/02/1911/03/2018 CBC w/ auto diff MCHC 33.5 g/dL 31.5-3 5.7 Not Available [facility] ([facility]) [address] [place], [address], 11/03/2018 09:15:50 11/02/1911/03/2018 CBC w/ auto diff RDW 13.9 % 12.3-1 5.4 Not Available [facility] ([facility]) [address] [place], [address], 11/03/2018 09:15:50 11/02/1911/03/2018 CBC w/ auto diff platelets 286 x10e3 /uL 150-37 9 Not Available [facility] ([facility]) [address] [facility], [place], [address], 11/03/2018 09:15:50 11/02/1911/03/2018 CBC w/ auto diff neutrophils 48 % not estab. Not Available [facility] ([facility]) [address] [place], [address], 11/03/2018 09:15:50 11/02/1911/03/2018 CBC w/ auto diff lymphs 45 % not estab. Not Available [facility] ([facility]) [address] [place], [address], 11/03/2018 09:15:50 11/02/1911/03/2018 CBC w/ auto diff monocytes 5 % not estab. Not Available [facility] ([facility]) [address] [place], [address], 11/03/2018 09:15:50 11/02/1911/03/2018 CBC w/ auto diff eos 2 % not estab. Not Available [facility] ([facility]) [address] [place], [address], 11/03/2018 09:15:50 11/02/1911/03/2018 CBC w/ auto diff basos 0 % not estab. Not Available [facility] ([facility]) [address] [place], [address], 11/03/2018 09:15:50 11/02/1911/03/2018 CBC w/ auto diff immature cells [employer] Not Available [facility] ([facility]) [address] [facility], [place], [address], 11/03/2018 09:15:50 11/02/1911/03/2018 CBC w/ auto diff neutrophils (absolute) 3.4 x10e3 /uL 1.4-7. 0 Not Available [facility] ([facility]) [address] [facility], [place], [address], 11/03/2018 09:15:50 11/02/1911/03/2018 CBC w/ auto diff lymphs (absolute) 3.3 x10e3 /uL 0.7-3. 1 above high normal Not Available [facility] ([facility]) [address] [facility], [place], [address], 11/03/2018 09:15:50 11/02/1911/03/2018 CBC w/ auto diff monocytes(ab solute) 0.4 x10e3 /uL 0.1-0. 9 Not Available [facility] ([facility]) [address] [facility], [place], [address], 11/03/2018 09:15:50 11/02/1911/03/2018 CBC w/ auto diff eos (absolute) 0.2 x10e3 /uL 0.0-0. 4 Not Available [facility] ([facility]) [address] [facility], [place], [address], 11/03/2018 09:15:50 11/02/1911/03/2018 CBC w/ auto diff baso (absolute) 0.0 x10e3 /uL 0.0-0. 2 Not Available [facility] ([facility]) [address] [place], [address], 11/03/2018 09:15:50 11/02/1911/03/2018 CBC w/ auto diff immature granulocytes 0 % not estab. Not Available [facility] ([facility]) [address] [place], [address], 11/03/2018 09:15:50 11/02/19 19 11/03/2018 CBC w/ auto diff immature grans (abs) 0.0 x10e3 /uL 0.0-0. 1 Not Available [facility] ([facility]) [address] [facility] [place], [address], 11/03/2018 09:15:50 11/02/1911/03/2018 CBC w/ auto diff NRBC [employer] Not Available [facility] ([facility]) [address] [facility] [place], [address], 11/03/2018 09:15:50 11/02/1911/03/2018 CBC w/ auto diff hematology comments: [employer] Not Available [facility] ([facility]) [address] [facility] [place], [address], 11/03/2018 09:15:50 11/02/1911/03/2018 CMP, serum or plasm a glucose 114 mg/dL 65-99 above high normal Not Available [facility] ([facility]) [address] [facility] [place], [address], 11/03/2018 09:15:51 11/02/1911/03/2018 CMP, serum or plasm a BUN 11 mg/dL 6-20 Not Available [facility] ([facility]) [address] [facility] [place], [address], 11/03/2018 09:15:51 11/02/1911/03/2018 CMP, serum or plasm a creatinine 0.96 mg/dL 0.76-1 .27 Not Available [facility] ([facility]) [address] [facility] [place], [address], 11/03/2018 09:15:51 11/02/1911/03/2018 CMP, serum or plasm a eGFR if nonafricn AM 101 mL/mi n/1.7 3 >59 Not Available [facility] ([facility]) [address] [facility] [place], [address], 11/03/2018 09:15:51 11/02/1911/03/2018 CMP, serum or plasm a eGFR if africn AM 117 mL/mi n/1.7 3 >59 Not Available [facility] ([facility]) [address] [facility] [place], [address], 11/03/2018 09:15:51 11/02/1911/03/2018 CMP, serum or plasm a BUN/creatini ne ratio 11 9-20 Not Available [facility] ([facility]) [address] [facility] [place], [address], 11/03/2018 09:15:51 11/02/1911/03/2018 CMP, serum or plasm a sodium 140 mmol/ L 134-14 4 Not Available [facility] ([facility]) [address] [place], [address], 11/03/2018 09:15:51 11/02/1911/03/2018 CMP, serum or plasm a potassium 4.4 mmol/ L 3.5-5. 2 Not Available [facility] ([facility]) [address] [facility] [place], [address], 11/03/2018 09:15:51 11/02/1911/03/2018 CMP, serum or plasm a chloride 101 mmol/ L 96-106 Not Available [facility] ([facility]) [address] [place], [address], 11/03/2018 09:15:51 11/02/1911/03/2018 CMP, serum or plasm a carbon dioxide, total 23 mmol/ L 20-29 Not Available [facility] ([facility]) [address] [place], [address], 11/03/2018 09:15:51 11/02/1911/03/2018 CMP, serum or plasm a calcium 9.6 mg/dL 8.7-10 .2 Not Available [facility] ([facility]) [address] [facility] [place], [address], 11/03/2018 09:15:51 11/02/1911/03/2018 CMP, serum or plasm a protein, total 7.5 g/dL 6.0-8. 5 Not Available [facility] ([facility]) [address] [facility] [place], [address], 11/03/2018 09:15:51 11/02/1911/03/2018 CMP, serum or plasm a albumin 4.6 g/dL 3.5-5. 5 Not Available [facility] ([facility]) [address] [facility] [place], [address], 11/03/2018 09:15:51 11/02/1911/03/2018 CMP, serum or plasm a globulin, total 2.9 g/dL 1.5-4. 5 Not Available [facility] ([facility]) [address] [facility] [place], [address], 11/03/2018 09:15:51 11/02/1911/03/2018 CMP, serum or plasm a A/G ratio 1.6 1.2-2. 2 Not Available [facility] ([facility]) [address] [facility] [place], [address], 11/03/2018 09:15:51 11/02/1911/03/2018 CMP, serum or plasm a bilirubin, total 0.5 mg/dL 0.0-1. 2 Not Available [facility] ([facility]) [address] [facility] [place], [address], 11/03/2018 09:15:51 11/02/1911/03/2018 CMP, serum or plasm a alkaline phosphatase 70 IU/L 39-117 Not Available [facility] [address] [facility] [place], [address], 11/03/2018 09:15:51 11/02/1911/03/2018 CMP, serum or plasm a AST (SGOT) 30 IU/L 0-40 Not Available [facility] ([facility]) [address] [place], [address], 11/03/2018 09:15:51 11/02/1911/03/2018 CMP, serum or plasm a ALT (SGPT) 52 IU/L 0-44 above high normal Not Available [facility] ([facility]) [address] [facility], [place], [address], 11/03/2018 09:15:51 11/02/1911/03/2018 urina lysis , compl ete specific gravity 1.021 1.005- 1.030 Not Available [facility] ([facility]) [address] [facility], [place], [address], 11/03/2018 09:15:51 11/02/1911/03/2018 urina lysis , compl ete pH 5.5 5.0-7. 5 Not Available [facility] ([facility]) [address] [facility], [place], [address], 11/03/2018 09:15:51 11/02/1911/03/2018 urina lysis , compl ete urine-color YELLOW yellow Not Available [facility] ([facility]) [address] [facility], [place], [address], 11/03/2018 09:15:51 11/02/1911/03/2018 urina lysis , compl ete appearance CLEAR clear Not Available [facility] ([facility]) [address] [facility] [place], [address], 11/03/2018 09:15:51 11/02/1911/03/2018 urina lysis , compl ete WBC esterase NEGATI VE negati ve Not Available [facility] ([facility]) [address] [facility] [place], [address], 11/03/2018 09:15:51 11/02/19 19 11/03/2018 urina lysis , compl ete protein NEGATI VE negati ve/tra ce Not Available [facility] ([facility]) [address] [place], [address], 11/03/2018 09:15:51 11/02/1911/03/2018 urina lysis , compl ete glucose NEGATI VE negati ve Not Available [facility] ([facility]) [address] [place], [address], 11/03/2018 09:15:51 11/02/1911/03/2018 urina lysis , compl ete ketones NEGATI VE negati ve Not Available [facility] ([facility]) [address] [place], [address], 11/03/2018 09:15:51 11/02/1911/03/2018 urina lysis , compl ete occult blood NEGATI VE negati ve Not Available [facility] ([facility]) [address] [place], [address], 11/03/2018 09:15:51 11/02/1911/03/2018 urina lysis , compl ete bilirubin NEGATI VE negati ve Not Available [facility] ([facility]) [address] [place], [address], 11/03/2018 09:15:51 11/02/1911/03/2018 urina lysis , compl ete urobilinogen ,semi-qn 0.2 mg/dL 0.2-1. 0 Not Available [facility] ([facility]) [address] [place], [address], 11/03/2018 09:15:51 11/02/1911/03/2018 urina lysis , compl ete nitrite, urine NEGATI VE negati ve Not Available [facility] ([facility]) [address] [place], [address], 11/03/2018 09:15:51 11/02/19 19 11/03/2018 urina lysis , compl ete microscopic examination COMMEN T Micro scopi c not indic ated and not perfo rmed. Not Available [facility] ([facility]) [address] [facility], [place], [address], 11/03/2018 09:15:51 11/02/1911/03/2018 lipid panel , serum cholesterol, total 186 mg/dL 100-19 9 Not Available [facility] ([facility]) [address] [facility], [place], [address], 11/03/2018 09:15:52 11/02/1911/03/2018 lipid panel , serum triglyceride s 176 mg/dL 0-149 above high normal Not Available [facility] ([facility]) [address] [facility], [place], [address], 11/03/2018 09:15:52 11/02/1911/03/2018 lipid panel , serum HDL cholesterol 31 mg/dL >39 below low normal Not Available [facility] ([facility]) [address] [facility], [place], [address], 11/03/2018 09:15:52 11/02/1911/03/2018 lipid panel , serum VLDL cholesterol sajan 35 mg/dL 5-40 Not Available [facility] ([facility]) [address] [facility], [place], [address], 11/03/2018 09:15:52 11/02/1911/03/2018 lipid panel , serum LDL cholesterol calc 120 mg/dL 0-99 above high normal Not Available [facility] ([facility]) [address] [facility] [place], [address], 11/03/2018 09:15:52 11/02/1911/03/2018 lipid panel , serum comment: [employer] Not Available [facility] ([facility]) [address] [facility], [place], [address], 11/03/2018 09:15:52 11/02/1911/03/2018 HbA1c (hemo globi n A1c), blood hemoglobin A1C 6.1 % 4.8-5. 6 above high normal Predi abete s: 5.7 - 6.4 Diabe drea: >6.4 Glyce anmol contr ol for adult s with diabe drea: <7.0 Not Available [facility] ([facility]) [address] [facility], [place], [address], 11/03/2018 09:15:52 11/02/1911/03/2018 HIV 1+2 AB + HIV 1 p24 Ag, quali tativ e immun oassa y, serum HIV screen 4TH generation wrfx NON REACTI VE non reacti ve Not Available [facility] ([facility]) [address] [facility], [place], [address], 11/03/2018 09:15:53 11/02/1911/02/2018 hepat itis C Ab, signa l-to- cutof f, serum or plasm a comment: COMMEN T Non react jyoti HCV antib heron scree n is consi stent with no HCV infec tion, unles s recen t infec tion is suspe cted or other evide nce exist s to indic ate HCV infec tion. Not Available [facility] ([facility]) [address] [facility], [place], [address], 11/03/2018 09:15:53 11/02/1911/03/2018 hepat itis C Ab, signa l-to- cutof f, serum or plasm a HCV Ab 0.1 s/co_ ratio 0.0-0. 9 Not Available [facility] ([facility]) [address] [facility], [place], [address], 11/03/2018 09:15:53 11/02/1911/03/2018 TSH, serum , refle x free T4 TSH 0.900 uIU/m L 0.450- 4.500 Not Available [facility] ([facility]) [address] [facility] [place], [address], 11/03/2018 09:15:54 05/15/20 20 05/16/2020 lipid panel , serum cholesterol, total 193 mg/dL 100-19 9 Not Available [facility] ([facility]) [address] [facility] [place], [address], 05/16/2020 08:14:51 05/15/20 20 05/16/2020 lipid panel , serum triglyceride s 213 mg/dL 0-149 above high normal Not Available [facility] ([facility]) [address] [facility] [place], [address], 05/16/2020 08:14:51 05/15/2005/16/2020 lipid panel , serum HDL cholesterol 32 mg/dL >39 below low normal Not Available [facility] ([facility]) [address] [facility], [place], [address], 05/16/2020 08:14:51 05/15/20 20 05/16/2020 lipid panel , serum VLDL cholesterol sajan 43 mg/dL 5-40 above high normal Not Available [facility] ([facility]) [address] [facility] [place], [address], 05/16/2020 08:14:51 05/15/2005/16/2020 lipid panel , serum LDL cholesterol calc 118 mg/dL 0-99 above high normal Not Available [facility] ([facility]) [address] [place], [address], 05/16/2020 08:14:51 05/15/2005/16/2020 lipid panel , serum comment: [employer] Not Available [facility] ([facility]) [address] [facility] [place], [address], 05/16/2020 08:14:51 05/15/2005/16/2020 hepat ic funct ion panel , serum protein, total 7.7 g/dL 6.0-8. 5 Not Available [facility] ([facility]) [address], [place], [address], 05/16/2020 08:14:52 05/15/2005/16/2020 hepat ic funct ion panel , serum albumin 4.5 g/dL 4.0-5. 0 Not Available [facility] ([facility]) [address], [place], [address], 05/16/2020 08:14:52 05/15/2005/16/2020 hepat ic funct ion panel , serum bilirubin, total 0.4 mg/dL 0.0-1. 2 Not Available [facility] ([facility]) [address], [place], [address], 05/16/2020 08:14:52 05/15/2005/16/2020 hepat ic funct ion panel , serum bilirubin, direct 0.11 mg/dL 0.00-0 .40 Not Available [facility] ([facility]) [address] [facility], [place], [address], 05/16/2020 08:14:52 05/15/2005/16/2020 hepat ic funct ion panel , serum alkaline phosphatase 73 IU/L 39-117 Not Available [facility] ([facility]) [address] [facility], [place], [address], 05/16/2020 08:14:52 05/15/2005/16/2020 hepat ic funct ion panel , serum AST (SGOT) 29 IU/L 0-40 Not Available [facility] ([facility]) [address] [facility] [place], [address], 05/16/2020 08:14:52 05/15/2005/16/2020 hepat ic funct ion panel , serum ALT (SGPT) 53 IU/L 0-44 above high normal Not Available [facility] ([facility]) [address] [facility] [place], [address], 05/16/2020 08:14:52 05/15/2005/16/2020 gluco se, fasti ng, QN, serum or plasm a glucose, plasma 113 mg/dL 65-99 above high normal Pleas e Note: Predi abete s 100 - 125 Diabe drea >125 Not Available [facility] ([facility]) [address] [place], [address], 05/16/2020 08:14:52 06/30/2007/01/2020 gluco se, fasti ng, QN, serum or plasm a glucose, plasma 129 mg/dL 65-99 above high normal Pleas e Note: Predi abete s 100 - 125 Diabe drea >125 Not Available [facility] ([facility]) [address] [place], [address], 07/01/2020 07:10:46 07/02/2007/03/2020 CBC w/ auto diff WBC 6.4 x10e3 /uL 3.4-10 .8 Not Available [facility] ([facility]) [address] [place], [address], 07/03/2020 10:13:08 07/02/2007/03/2020 CBC w/ auto diff RBC 5.22 x10e6 /uL 4.14-5 .80 Not Available [facility] ([facility]) [address] [place], [address], 07/03/2020 10:13:08 07/02/2007/03/2020 CBC w/ auto diff hemoglobin 14.7 g/dL 13.0-1 7.7 Not Available [facility] ([facility]) [address] [place], [address], 07/03/2020 10:13:08 07/02/2007/03/2020 CBC w/ auto diff hematocrit 44.8 % 37.5-5 1.0 Not Available [facility] ([facility]) [address] [place], [address], 07/03/2020 10:13:08 07/02/2007/03/2020 CBC w/ auto diff MCV 86 fL 79-97 Not Available [facility] ([facility]) [address] [facility], [place], [address], 07/03/2020 10:13:08 07/02/2007/03/2020 CBC w/ auto diff MCH 28.2 pg 26.6-3 3.0 Not Available [facility] ([facility]) [address] [facility], [place], [address], 07/03/2020 10:13:08 07/02/2007/03/2020 CBC w/ auto diff MCHC 32.8 g/dL 31.5-3 5.7 Not Available [facility] ([facility]) [address] [facility], [place], [address], 07/03/2020 10:13:08 07/02/2007/03/2020 CBC w/ auto diff RDW 13.8 % 11.6-1 5.4 Not Available [facility] ([facility]) [address] [facility], [place], [address], 07/03/2020 10:13:08 07/02/2007/03/2020 CBC w/ auto diff platelets 276 x10e3 /uL 150-45 0 Not Available [facility] ([facility]) [address] [place], [address], 07/03/2020 10:13:08 07/02/2007/03/2020 CBC w/ auto diff neutrophils 41 % not estab. Not Available [facility] ([facility]) [address] [place], [address], 07/03/2020 10:13:08 07/02/2007/03/2020 CBC w/ auto diff lymphs 49 % not estab. Not Available [facility] ([facility]) [address] [place], [address], 07/03/2020 10:13:08 07/02/2007/03/2020 CBC w/ auto diff monocytes 7 % not estab. Not Available [facility] ([facility]) [address] [place], [address], 07/03/2020 10:13:08 07/02/20 20 07/03/2020 CBC w/ auto diff eos 2 % not estab. Not Available [facility] ([facility]) [address] [place], [address], 07/03/2020 10:13:08 07/02/2007/03/2020 CBC w/ auto diff basos 1 % not estab. Not Available [facility] ([facility]) [address] [place], [address], 07/03/2020 10:13:08 07/02/2007/03/2020 CBC w/ auto diff immature cells [employer] Not Available [facility] ([facility]) [address] [place], [address], 07/03/2020 10:13:08 07/02/2007/03/2020 CBC w/ auto diff neutrophils (absolute) 2.6 x10e3 /uL 1.4-7. 0 Not Available [facility] ([facility]) [address] [place], [address], 07/03/2020 10:13:08 07/02/2007/03/2020 CBC w/ auto diff lymphs (absolute) 3.1 x10e3 /uL 0.7-3. 1 Not Available [facility] ([facility]) [address] [place], [address], 07/03/2020 10:13:08 07/02/2007/03/2020 CBC w/ auto diff monocytes(ab solute) 0.5 x10e3 /uL 0.1-0. 9 Not Available [facility] ([facility]) [address] [facility], [address], 07/03/2020 10:13:08 07/02/2007/03/2020 CBC w/ auto diff eos (absolute) 0.1 x10e3 /uL 0.0-0. 4 Not Available [facility] ([facility]) [address] [facility], [place], [address], 07/03/2020 10:13:08 07/02/2007/03/2020 CBC w/ auto diff baso (absolute) 0.0 x10e3 /uL 0.0-0. 2 Not Available [facility] ([facility]) [address] [facility], [place], [address], 07/03/2020 10:13:08 07/02/2007/03/2020 CBC w/ auto diff immature granulocytes 0 % not estab. Not Available [facility] ([facility]) [address] [facility], [place], [address], 07/03/2020 10:13:08 07/02/2007/03/2020 CBC w/ auto diff immature grans (abs) 0.0 x10e3 /uL 0.0-0. 1 Not Available [facility] ([facility]) [address] [facility], [place], [address], 07/03/2020 10:13:08 07/02/2007/03/2020 CBC w/ auto diff NRBC [employer] Not Available [facility] ([facility]) [address] [facility], [place], [address], 07/03/2020 10:13:08 07/02/2007/03/2020 CBC w/ auto diff hematology comments: [employer] Not Available [facility] ([facility]) [address] [facility], [place], [address], 07/03/2020 10:13:08 07/02/2007/03/2020 urina lysis , compl ete specific gravity 1.024 1.005- 1.030 Not Available [facility] ([facility]) [address] [facility], [place], [address], 07/03/2020 10:13:08 07/02/2007/03/2020 urina lysis , compl ete pH 5.0 5.0-7. 5 Not Available [facility] ([facility]) [address] [place], [address], 07/03/2020 10:13:08 07/02/2007/03/2020 urina lysis , compl ete urine-color YELLOW yellow Not Available [facility] ([facility]) [address] [facility], [place], [address], 07/03/2020 10:13:08 07/02/2007/03/2020 urina lysis , compl ete appearance CLEAR clear Not Available [facility] ([facility]) [address] [place], [address], 07/03/2020 10:13:08 07/02/2007/03/2020 urina lysis , compl ete WBC esterase NEGATI VE negati ve Not Available [facility] ([facility]) [address] [place], [address], 07/03/2020 10:13:08 07/02/2007/03/2020 urina lysis , compl ete protein NEGATI VE negati ve/tra ce Not Available [facility] ([facility]) [address] [place], [address], 07/03/2020 10:13:08 07/02/2007/03/2020 urina lysis , compl ete glucose NEGATI VE negati ve Not Available [facility] ([facility]) [address] [place], [address], 07/03/2020 10:13:08 07/02/2007/03/2020 urina lysis , compl ete ketones NEGATI VE negati ve Not Available [facility] ([facility]) [address] [facility], [place], [address], 07/03/2020 10:13:08 07/02/2007/03/2020 urina lysis , compl ete occult blood NEGATI VE negati ve Not Available [facility] ([facility]) [address] [facility], [place], [address], 07/03/2020 10:13:08 07/02/2007/03/2020 urina lysis , compl ete bilirubin NEGATI VE negati ve Not Available [facility] ([facility]) [address] [place], [address], 07/03/2020 10:13:08 07/02/2007/03/2020 urina lysis , compl ete urobilinogen ,semi-qn 0.2 mg/dL 0.2-1. 0 Not Available [facility] ([facility]) [address] [place], [address], 07/03/2020 10:13:08 07/02/2007/03/2020 urina lysis , compl ete nitrite, urine NEGATI VE negati ve Not Available [facility] ([facility]) [address] [place], [address], 07/03/2020 10:13:08 07/02/2007/03/2020 urina lysis , compl ete microscopic examination COMMEN T Micro scopi c not indic ated and not perfo rmed. Not Available [facility] ([facility]) [address] [place], [address], 07/03/2020 10:13:08 07/02/2007/03/2020 basic metab olic 1998 panel , serum or plasm a glucose 141 mg/dL 65-99 above high normal Not Available [facility] ([facility]) [address] [place], [address], 07/03/2020 10:13:09 07/02/20 07/03/2020 basic metab olic 1998 panel , serum or plasm a BUN 10 mg/dL 6-20 Not Available [facility] ([facility]) [address] [place], [address], 07/03/2020 10:13:09 07/02/2007/03/2020 basic metab olic 1998 panel , serum or plasm a creatinine 0.77 mg/dL 0.76-1 .27 Not Available [facility] ([facility]) [address] [place], [address], 07/03/2020 10:13:09 07/02/2007/03/2020 basic metab olic 1998 panel , serum or plasm a eGFR if nonafricn AM 115 mL/mi n/1.7 3 >59 Not Available [facility] ([facility]) [address] [place], [address], 07/03/2020 10:13:09 07/02/2007/03/2020 basic metab olic 1998 panel , serum or plasm a eGFR if africn AM 133 mL/mi n/1.7 3 >59 Not Available [facility] ([facility]) [address] [place], [address], 07/03/2020 10:13:09 07/02/2007/03/2020 basic metab olic 1998 panel , serum or plasm a BUN/creatini ne ratio 13 9-20 Not Available [facility] ([facility]) [address] [place], [address], 07/03/2020 10:13:09 07/02/2007/03/2020 basic metab olic 1998 panel , serum or plasm a sodium 137 mmol/ L 134-14 4 Not Available [facility] ([facility]) [address] [place] [address], [address], 07/03/2020 10:13:09 07/02/2007/03/2020 basic metab olic 1998 panel , serum or plasm a potassium 4.6 mmol/ L 3.5-5. 2 Not Available [facility] ([facility]) [address] [place], [address], 07/03/2020 10:13:09 07/02/20 20 07/03/2020 basic metab olic 1998 panel , serum or plasm a chloride 100 mmol/ L 96-106 Not Available [facility] ([facility]) [address] [place], [address], 07/03/2020 10:13:09 07/02/2007/03/2020 basic metab olic 1998 panel , serum or plasm a carbon dioxide, total 23 mmol/ L 20-29 Not Available [facility] ([facility]) [address] [facility], [place], [address], 07/03/2020 10:13:09 07/02/2007/03/2020 diabe drea patie nt educa tion pdf . Not Available [facility] ([facility]) [address] [facility], [place], [address], 07/03/2020 10:13:10 07/02/2007/03/2020 HbA1c (hemo globi n A1c), blood hemoglobin A1C 6.8 % 4.8-5. 6 above high normal Predi abete s: 5.7 - 6.4 Diabe drea: >6.4 Glyce anmol contr ol for adult s with diabe drea: <7.0 Not Available [facility] ([facility]) [address] [facility], [place], [address], 07/03/2020 10:13:10 11/12/19 21 11/07/2020 XR, chest , 2 view No observ ation record ed. [address], [address], 11/12/2020 13:43:01 04/09/20 21 04/04/2021 XR, chest No observ ation record ed. [address], [place], [address], 04/09/2021 14:00:35 06/23/20 21 06/23/2021 US, thyro id No observ ation [facility] [address] [place], [address], 06/23/2021 14:54:32 08/09/20 21 06/23/2021 US, neck No observ ation record ed. [facility] ([facility] Call Scheduling) [address] [place], [address], 08/18/2021 10:08:47 Result Notes None recorded. Problems Name Problem SNOMED Code Status Onset Date Resolution Date Notes Provider Name and Address Organization Details Recorded Time Influenza vaccination declined 108524946 Active 2018 Omi Ferguson MD Attn: Janna arndt,[address] [place], [address], [facility] 9 12:11:01 Electrocardiog angella abnormal 920029321 Active 2020 Omi Ferguson MD Attn: Janna arndt,[address] [place], [address], [facility] 1 11:14:44 Benign hypertension 56580645 Active Omi Ferguson MD Attn: Janna arndt,[address] [place], [address], [place] [facility] 5 14:55:55 Overweight 593499863 Active Omi Ferguson MD Attn: Janna arndt,[address] [place], [address], [place] [facility] 5 14:55:55 Tobacco user 545628434 Active Omi Ferguson MD Attn: Janna arndt,[address] [place], [address], [place] - [facility] 5 14:55:55 Allergic rhinitis 84803446 Active Omi Ferguson MD Attn: Janna arndt,[address], [place], [address], [place] [facility] 5 14:55:55 Fatigue 15973569 Active Omi Ferguson MD Attn: Janna arndt,[address], [place], [address], [place] [facility] 5 14:55:55 Impacted cerumen 15796997 Active Omi Ferguson MD Attn: Janna arndt,[address], [place], [address], [place] [facility] 5 14:55:55 Problem Notes None recorded. Procedures Surgical History None recorded. Imaging Results Imaging Date Name Status LastModified by [facility] Details LastModified Time 11/07/2020 XR, chest, 2 view [address] [place] [address], [address], 11/12/2020 13:43:01 04/04/2021 XR, chest completed [address] [place] [address], [address], 04/09/2021 14:00:35 06/23/2021 US, thyroid completed [facility] ([facility] Call Scheduling) [address] [place], [address], 06/23/2021 14:54:32 06/23/2021 US, neck completed [facility] ([facility] Call Scheduling) [address] [place], [address], 08/18/2021 10:08:47 Procedure Notes None recorded. Medical Equipment None Reported. Allergies No known drug allergies Medications Name Sig Start Date Stop Date Status Note LastModified by Organization Details LastModified Time hydrochloro thiazide 50 mg tablet 06/14 completed Not Available Not Available Not Available Debrox 6.5 % ear drops Instill 5 drops twice a day by otic route for 4 days. 06/14 completed Not Available Not Available Not Available lisinopril 20 mg-hydrochl orothiazide 25 mg tablet TAKE 1 TABET BY MOUTH EVERY DAY FOR BLOOD PRESSURE AND FLUID RETENTION (follow up appointme nt needed) active Not Available Not Available No t Available fluticasone propionate 50 mcg/actuati on nasal spray,suspe nsion Inhale 2 sprays every day by intranasa l route as directed for 30 days. 06/14 completed Not Available Not Available Not Available hydrochloro thiazide 12.5 mg tablet TAKE 1 TABLET BY MOUTH EVERY DAY 06/14 completed Not Available Not Available Not Available Vitals Date Recorded Body height Provider Name an d Address Organization Details Last Updated DateTime 09/14/2017 187.96 cm Na Cole MA [facility] 017 14:08:21 Date Recorded Body mass index (BMI) Body weight Provider Name and Address Organization Details Last Updated DateTime 09/14/2017 46.7 kg/m2 894414.9 g Na Cole [facility] 09/14/2017 14:08:35 Date Recorded Body temperature Provider Name a nd Address Organization Details Last Updated DateTime 09/14/2017 97.6 [degF] Na Cole [facility] 2016 14:10:48 Date Recorded Heart rate Provider Name an d Address Organization Details Last Updated DateTime 09/14/2017 94 /min Na Cole MA [facility] 017 14:10:50 Date Recorded Oxygen saturation Oxygen saturation in Arterial blood by Pulse oximetry Provider Name and Address Organization Details Last Updated DateTime 09/14/2017 97 % 97 % Na Cole [facility] 09/14/2017 14:10:53 Date Recorded Body height Provider Name an d Address Organization Details Last Updated DateTime 11/05/2018 187.96 cm Na Cole MA [facility] 019 11:48:29 Date Recorded Body mass index (BMI) Body weight Provider Name and Address Organization Details Last Updated DateTime 11/05/2018 47.4 kg/m2 947025.58 g Na Cole [facility] 11/05/2018 11:48:33 Date Recorded Body temperature Provider Name a nd Address Organization Details Last Updated DateTime 11/05/2018 97.6 [degF] Na Cole MA [facility] 2018 11:49:46 Date Recorded Heart rate Provider Name an d Address Organization Details Last Updated DateTime 11/05/2018 96 /min Na Cole [place] [facility] 019 11:49:52 Date Recorded Oxygen saturation Oxygen saturation in Arterial blood by Pulse oximetry Provider Name and Address Organization Details Last Updated DateTime 11/05/2018 95 % 95 % CHARLY Brown [place] 11/05/2018 11:49:56 Date Recorded Body height Provider Name an d Address Organization Details Last Updated DateTime 05/21/2020 187.96 cm Na Cole MA [facility] 11:06:39 Date Recorded Body mass index (BMI) Body weight Provider Name and Address Organization Details Last Updated DateTime 05/21/2020 51.2 kg/m2 725750.64 g Na Cole MA [facility] 05/21/2020 11:06:46 Date Recorded Body temperature Provider Name a nd Address Organization Details Last Updated DateTime 05/21/2020 98 [degF] Na Cole MA [facility] 020 11:09:35 Date Recorded Oxygen saturation Oxygen saturation in Arterial blood by Pulse oximetry Provider Name and Address Organization Details Last Updated DateTime 05/21/2020 95 % 95 % Na Cole [place] [facility] 05/21/2020 11:09:38 Date Recorded Heart rate Provider Name an d Address Organization Details Last Updated DateTime 05/21/2020 106 /min Na Cole [place] [facility] 020 11:09:41 Date Recorded Respiratory rate Provider Name a nd Address Organization Details Last Updated DateTime 05/21/2020 20 /min Na Cole MA [facility] 020 11:09:43 Date Recorded Body height Provider Name an d Address Organization Details Last Updated DateTime 07/02/2020 187.96 cm CHARLY Brown SIKarine 09:57:59 Date Recorded Body mass index (BMI) Body weight Provider Name and Address Organization Details Last Updated DateTime 07/02/2020 51.2 kg/m2 503761.36 g Na Cole [place] [facility] 07/02/2020 09:58:05 Date Recorded Body temperature Provider Name a nd Address Organization Details Last Updated DateTime 07/02/2020 98 [degF] Na Cole [place] [facility] 09:59:08 Date Recorded Oxygen saturation Oxygen saturation in Arterial blood by Pulse oximetry Provider Name and Address Organization Details Last Updated DateTime 07/02/2020 95 % 95 % Na Cole MA [facility] 07/02/2020 09:59:10 Date Recorded Heart rate Provider Name an d Address Organization Details Last Updated DateTime 07/02/2020 98 /min Na IdaCHARLY rodriguez [facility] 09:59:12 Date Recorded Respiratory rate Provider Name a nd Address Organization Details Last Updated DateTime 07/02/2020 20 /min Naher Kelsey MA [facility] 09:59:18 Date Recorded Body height Provider Name an d Address Organization Details Last Updated DateTime 11/11/2020 187.96 cm Na Cole MA [facility] 11:04:29 Date Recorded Body mass index (BMI) Body weight Provider Name and Address Organization Details Last Updated DateTime 11/11/2020 50.1 kg/m2 446457.67 g Na Cole MA [facility] 11/11/2020 11:04:35 Date Recorded Heart rate Provider Name an d Address Organization Details Last Updated DateTime 11/11/2020 92 /min Na Cole MA [facility] 11:08:51 Date Recorded Oxygen saturation Oxygen saturation in Arterial blood by Pulse oximetry Provider Name and Address Organization Details Last Updated DateTime 11/11/2020 97 % 97 % Na Cole MA [facility] 11/11/2020 11:08:54 Date Recorded Respiratory rate Provider Name a nd Address Organization Details Last Updated DateTime 11/11/2020 18 /min Na Cole MA [facility] 11:08:57 Date Recorded Body temperature Provider Name a nd Address Organization Details Last Updated DateTime 11/11/2020 98 [degF] aN Cole MA [facility] 021 11:09:31 Date Recorded Systolic blood pressure Diastolic blood pressure Provider Name and Address Organization Details Last Updated DateTime 09/14/2017 128 mm[Hg] 72 mm[Hg] Na Cole [place] 09/14/2017 14:12:17 Date Recorded Systolic blood pressure Diastolic blood pressure Provider Name and Address Organization Details Last Updated DateTime 11/05/2018 130 mm[Hg] 90 mm[Hg] Na Cole [place] 11/05/2018 11:51:12 Date Recorded Systolic blood pressure Diastolic blood pressure Provider Name and Address Organization Details Last Updated DateTime 05/21/2020 136 mm[Hg] 100 mm[Hg] Na Cole MA [facility] 05/21/2020 11:10:58 Date Recorded Systolic blood pressure Diastolic blood pressure Provider Name and Address Organization Details Last Updated DateTime 07/02/2020 140 mm[Hg] 90 mm[Hg] Na Cole [place] [facility] 07/02/2020 10:00:31 Date Recorded Systolic blood pressure Diastolic blood pressure Provider Name and Address Organization Details Last Updated DateTime 11/11/2020 130 mm[Hg] 84 mm[Hg] Na Cole [place] [facility] 11/11/2020 11:08:47 Social History Question Answer Notes LastModified by Organizat ion Details LastModified Time Tobacco Smoking Status Former Smoker quit a little over a year ago Na Cole MA [place], [place] - [facility] 05/21/2020 11:08:27 Do You Have An Advance Directive? No Information not available 08/03/2015 Is Your Home Air Conditioned? Yes Information not available 11/11/2020 What Is Your Level Of Alcohol Consumption? Occasional Information not available 08/03/2015 Are You Blind Or Do You Have Difficulty Seeing? No Information not available 11/11/2020 What Is Your Level Of Caffeine Consumption? Occasional Information not available 11/11/2020 Are You A Caregiver? No Information not available 11/11/2020 How Much Tobacco Do You Chew? None Information not available 08/03/2015 What Type Of Faculty Instructor Do You Use? None Information not available 11/11/2020 Have You Been To An Area Known To Be High Risk For COVID-19? No Information not available 11/11/2020 Are You Deaf Or Do You Have Serious Difficulty Hearing? No Information not available 11/11/2020 What Type Of Diet Are You Following? REGULAR Information not available 11/11/2020 Do You Or Have You Ever Used E-cigarettes Or Vape? 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 No Information not available 08/03/2015 Hard Of Hearing Or Deaf In One Or Both Ears? No Information not available 08/03/2015 Do You Use Insect Repellent Routinely? No Information not available 11/11/2020 Legally Blind In One Or Both Eyes? No Information not available 08/03/2015 Marital Status Informatio n not available 08/03/2015 Do You Have Moisture Problems In Your Home? No Information not available 11/11/2020 What Was The Date Of Your Most Recent Tobacco Screening? 07/02/2020 Information not available 07/02/2020 Have You Ever Been Counseled For Unhealthy Alcohol Use? No Information not available 11/11/2020 Performs Monthly Self-breast Exam? No Information not available 08/03/2015 Do You Use Your Seat Belt Or Car Seat Routinely? Yes Information not available 11/11/2020 Seat Belts Used Routinely Yes Information not available 08/03/2015 Are You Sexually Active? Yes Information not available 11/11/2020 Smoke Alarm In Home Yes Information not available 08/03/2015 Do You Have Smoke And Carbon Monoxide Detectors In Your Home? Yes Information not available 11/11/2020 Do You Or Have You Ever Used Smokeless Tobacco? Never Used Smokeless Tobacco Information not available 05/21/2020 Are There Any Smokers In Your House? Yes Information not available 11/11/2020 How Much Tobacco Do You Smoke? 0.25 PPD Information not available 08/03/2015 Do You Participate In Social Media? Yes Information not available 11/11/2020 General Stress Level Medium Information not available 08/03/2015 Do You Use Any Illicit Or Recreational Drugs? No Information not available 11/11/2020 Do You Use Sunscreen Routinely? No Information not available 08/03/2015 On What Date Was Tobacco Cessation Counseling Provided? 05/21/2020 Information not available 05/21/2020 How Many Years Have You Smoked Tobacco? 3 Information not available 11/05/2018 Have You Recently Traveled Abroad? No Information not available 11/11/2020 Do You Have Any Dietary Restrictions? No Information not available 11/11/2020 Do You Or Have You Ever Used Any Other Forms Of Tobacco Or Nicotine? No Information not available 11/11/2020 Sex: Male Functional Status Question Answer Note LastModified by Organizat ion Details LastModified Time Do you have difficulty walking or climbing stairs? No Information not available 11/11/2020 Do you have transportation difficulties? No Information not available 11/11/2020 Are you able to walk? YESWOREST Information not available 11/11/2020 Do you have difficulty doing errands alone? No Information not available 11/11/2020 Are you able to care for yourself? Yes Information n ot available 11/11/2020 Do you have difficulty dressing or bathing? No Information not available 11/11/2020 What is your exercise level? Occasional Information not available 11/11/2020 Mental Status Question Answer Note LastModified by Organization D etails LastModified Time Do you have difficulty concentrating, remembering or making decisions? No Information no t available 11/11/2020 Family History Relationship Description Onset Age of this Age Resolved Age Notes LastModified by Organization Details LastModified Time Mother Depressive disorder asavala Not available 2014 14:31:38 Mother Diabetes mellitus asavala Not available 2014 14:31:38 Father Alcohol abuse asavala Not available 2014 14:31:38 Medical History Condition Response Coronary Artery Disease N Other N High Blood Pressure Y Atrial Fibrillation N Kidney or Bladder Problems N Thyroid Problems N GI Problems N Depression N COPD N Blood Clots N Skin Problems N Anemia N Heart Attack ([place]) N Anxiety Disorder N Diabetes N Muscle, Joint, or Bone Problems N Seizures/Epilepsy N Acid Reflux (GERD) N Cancer N Stroke N Asthma N Allergies N High Cholesterol N Hepatitis N Liver Disease N Headaches N Heart Failure N Osteoporosis N Immunizations Vaccine Type Date Status Note Provider Nam e and Address Organization Details Recorded Time Tdap 11/05/2018 completed Not Available [employer] 10/19/2019 02:37:04 Past Encounters Encounter ID Performer Location Encounter Start Date Encounter Closed Date Diagnosis/Indication Diagnosis SNOMED-CT Code Diagnosis ICD10 Code Diagnosis Note [id number] Omi Ferguson MD [facility] (Adult Med) [address] [place] [address] [phone] 0 08/03/2015 13:42:58 08/03/2015 15:59:28 General examination of patient 312010523 Z00.01 34 y/o BM who presents to this office as a new patient, he has had documented elevated BP at ER on more than one occasion in the last year, he also admits that he has gained back the 50lbs that he lost. Benign hypertension 1072 5009 I10 Low salt diet, weight loss and start HCTZ as this has been previously documented during his ER visits. Patient education was done on HTN Overweight 151745342 E66 .3 Tobacco user 635152798 Z 72.0 8 month history of Tobacco use, cessation was discussed Allergic rhinitis 188795 04 J30.9 Fatigue 90928607 R53.83 Impacted cerumen 4476079 6 H61.22 [id number] Omi Ferguson MD [facility] (Adult Med) [address] [place] [address] [phone] 0 06/14/2017 10:11:57 06/15/2017 10:44:40 Adult health examination 415019641 Z00.01 Benign ess ential hypertension 5832803 I10 Intermitte nt palpitations 652642596 R00.2 Recurrent apnea 69371505 2 R06.81 He snores, he has HTN, STOP-BANG score 7 , [place] 3 Immunization refused 275 545863 Z28.20 Sleep disorder 42378504 G47.9 [id number] MD Marina Alvarez (Adult Med) [address] [place] [address] [phone] 0 09/14/2017 14:01:34 09/14/2017 14:32:58 Benign essential hypertension 8409075 I10 Stable on Lisinopril /HCTZ Overweight 988453202 E66 .3 Venereal d isease screening 067659283 Z11.3 Immunization refused 275 791146 Z28.20 [id number] MD Marina Alvarez (Adult Med) [address] [place] [address] [phone] 0 11/05/2018 11:41:12 11/06/2018 09:05:38 Benign hypertension 31731019 I10 Continue diet, weight loss and restart Lisinopril /HCTZ Tobacco user 411748880 Z 72.0 Cessation was discussed Impaired f asting glycemia 561966672 R73.01 Discussed Administra tion of diphtheria, pertussis, and tetanus vaccine 751802764 Z23 Liver enzy mes level above reference range 840103472 R74.8 Disorder o f lipid metabolism 599863530 E78.9 Discussed Influenza vaccination declined 423164251 Z28.21 Snoring 00988274 R06.83 He snores but he denies any apneic episodes [id number] MD Marina Alvarez (Adult Med) [address] [place] [address] [phone] 0 05/21/2020 10:48:22 05/21/2020 11:50:09 Benign hypertension 20427127 I10 Continue diet, weight loss and restart Lisinopril /HCTZ, we have done this before and even though I offered to change him to Losartan and HCTZ, he declined.S walter effects were discussed Impaired f asting glycemia 005476514 R73.01 Discussed Noncomplia nce with treatment 8331136 Z91.19 Alanine aminotransferase above reference range 014708970 R74.0 DIALLO? General ex amination of patient 914193831 Z00.01 [id number] MD Marina Alvarez (Adult Med) [address] [place] [address] [phone] 0 07/02/2020 09:47:14 07/04/2020 05:44:11 Essential hypertension 22277148 I10 No meds todayRN BP check Influenza vaccination declined 090137987 Z28.21 Impaired f asting glycemia 600600923 R73.01 Discussed [id number] Omi Ferguson MD [facility] (Adult Med) [address] [place] [address] [phone] 0 11/11/2020 10:52:56 11/12/2020 09:08:40 Type 2 diabetes mellitus without complication 731759406 E11.9 This is a new diagnosis and the management was discussed in detail Chest pain 20844551 R07. 9 He has been referred back to his cardiologi st, Dr Bernstein. Electrocar diogram abnormal 134853272 R94.31 He will be seeing his cardiologi st soon Body mass index 40+ - severely obese 905059467 Z68.43 He has lost 10 lbs Recurrent apnea 64532285 2 R06.81 He snores, he has HTN, STOP-BANG score 7 , [place] 3Previousl y referred 06/14/2017H is new [place] score is only lower, he however has several risk factors Disorder o f lipid metabolism 273056939 E78.9 Discussed Benign ess ential hypertension 3708458 I10 Influenza vaccination declined 174375464 Z28.21 Health Concerns Section Related Observation LastModified by Organization Detai ls LastModified Time None Recorded Concern Status LastModified by Organization Details LastModified Time None Recorded Advance Directives Directive N: Payers Encounter Date Sequence Insurance Name Policy Number Policy Andre Covered Member ID Andre Member ID Guarantor Name 09/14/2017 1 [employer] (POS) [id number] Roderick Drummond [id number] Roderick Drummond 11/05/2018 1 [employer] (POS) [id number] Roderick Drummond [id number] Roderick Drummond 05/21/2020 1 [employer] (POS) [id number] Roderick Drummond [id number] Roderick Drummond 07/02/2020 1 [employer] (POS) [id number] Roderick Drummond [id number] Roderick Drummond 11/11/2020 2 *SELF PAY* La vipul Drummond 11/11/2020 1 [employer] [id number] Roderick Drummond [id number] Roderick Drummond Notes Date Note Type Note Provider Name and Address Organization Details Recorded Time 09/14/2017 text/html Hypertension F/UReported bypatient.Associated Symptoms:no dizziness; no lightheadedness; no chest pain; no shortness of breath; no palpitations; no edema; no calf pain with exertion Lifestyle:regular exercise; limiting/avoiding salt Medications:taking medications as directed; no side effects from medication They wanted $1,500.00 Mr. Bhanu aguirre, he feels better but was unable to afford the sleep study, he was seen by the mailing machine assistant and the ST and TTE were both unremarkable. Omi Ferguson MD Attn: Accounting,[address] [place], [address], [facility] 09/14/2017 14:33:43 05/21/2020 text/html Hypertension F/UReported bypatient.Associated Symptoms:no dizziness; no lightheadedness; no chest pain; no shortness of breath; no palpitations; no edema; no calf pain with exertion Lifestyle:regular exercise; limiting/avoiding salt Medications:not taking medications as directed;side effects from medications I am here to get a check up I had my blood work done Monday and my blood pressure is a little high Mr Bhanu aguirre, he was compliant with his Lisinopril/HCTZ until the end of March, he states that it was giving him a headache. Omi Ferguson MD Attn: Accounting, [address] [place], [address], [facility] 05/21/2020 13:04:39 07/02/2020 text/html Hypertension F/UReported bypatient.Associated Symptoms:no dizziness; no lightheadedness; no chest pain; no shortness of breath; no palpitations; no edema; no calf pain with exertion Lifestyle:regular exercise; limiting/avoiding salt Medications:taking medications as directed; no side effects from medication I am doing fine But my son sometimes still have chills sometimes. plus I take care of my mom, she's got DM Mr Bhanu aguirre, his son was exposed to an index case with Covid and although they all tested negative, he has no fever but he has chills at night. His mother is a diabetic and she had a recent amputation. He would like to stay off work for at least another 2 weeks. He is yet to take his blood pressure medicine today and he has not checked it since his last office visit. Omi Ferguson MD Attn: Accounting, [address] , [place], [address], [facility] 07/02/2020 10:35:41 11/11/2020 text/html Angina/Chest PainReported bypatient.Location:radi ates to the neck Quality:pressure Severity:very limiting; severe Duration:lasts minutes; lasts seconds Onset/Timing:has noted for months Context:exertional Alleviating Factors:relieved with rest Aggravating Factors:worse with activity Associated Symptoms:no decrease in exercise capacity; no fatigue; no nocturnal episodes; no resting episodes; no associated palpitations; no associated dizziness;shortness of breathHypertension F/UReported bypatient.Associated Symptoms:no dizziness; no lightheadedness; no chest pain; no shortness of breath; no palpitations; no edema; no calf pain with exertion Lifestyle:regular exercise; limiting/avoiding salt Medications:taking medications as directed; no side effects from medication I went to the ER on Monday, I was SOB and I had some chest pain, they ran some blood work and told me to follow up with my mailing machine assistant My ain't said nothing, I don't think so They will put me in a laundry room Mr Drummond returns, he was in his [employer], but while at work last Monday, as he was pulling his trash cart, at he developed SOB and chest pain. He was seen at the ER at . His EKG was abnormal and the CXR was negative. He was previously referred in 2017 to the sleep physician, it was too expensive. He denies any reported apneic episodes and he continues with his efforts to lose weight. He would like to return to work on light duty. Omi Ferguson MD Attn: Accounting, [address] , [place], [address], [facility] 11/11/2020 16:48:57
--- OUTSIDE RECORDS SUMMARY | 2024-10-24 20:47 | XMS_ITS | CONTINUITY OF CARE DOCUMENT ---
Author Name bethany, bethany Address Unknown Organization [facility] Address [address] [place] [address] Phone [phone] Care Team Providers Care Make Up Arranger Name Role Phone Julio C Ruvalcaba MD Unavailable [phone] SKIP RICO MD Unavailable SKIP RICO MD Unavailable [phone] PROBLEMS Condition Status Date Provider Notes Dizziness active Julio C Ruvalcaba MD Physical exam completed - Toby giles MD Palpitations active Julio C Ruvalcaba MD Obesity active Julio C Ruvalcaba MD Sinus tachycardia active Julio C Ruvalcaba MD Hypertension active ? Julio C Ruvalcaba MD Chest pain active Toby Delgado MD Diabetes mellitus active Toby Delgado MD ENCOUNTERS Date Type Provider Location Encounter Diag nosis 2 - 2 In-person encounter Office Visit Toby Delgado MD [facility] Physical examChest painDiabetes mellitus 9 - 3 In-person encounter Office Visit Julio C Ruvalcaba MD [facility] DizzinessPalpitationsObesitySinus tachycardiaHypertension VITAL SIGNS Date Observation [...] Payer name Policy type / Coverage type [facility] green party ID [employer] insurance [employer] [id number] ADVANCE DIRECTIVES Name Date DISCUSSED - NO [...] EKG Julio C duggan MD completed SNOMED-CT: [id number] Current Medications Documented Julio C Ruvalcaba MD completed
== END 2024-10-22 23:39 | disposition home or self-care (01) ==
LOC: ANHED 23:35
PROVIDERS: Emergency Provider Emergency Medicine; PCP Family Medicine Sports Medicine
DX: H66.92 Otitis media, unspecified, left ear (principal); I10 Essential (primary) hypertension
CPT/HCPCS: 99283; A9270